=== PATIENT | male | born 1945 | race Caucasian/White ===

== ENCOUNTER 2024-01-07 12:04 | Inpatient (IN) | payer MEDICARE, OTHER, SELFPAY ==
[2024-01-05 15:17] VITALS: BP 115/80
--- NOTE | 2024-01-05 15:33 | ED.CVA ---
History of Present Illness
<Robert Natarajan PA-C - Last Filed: 01/08/24 13:08>
General
Chief Complaint: CVA/TIA Symptoms
Time Seen by Provider: 01/05/24 15:21
Onset of Stroke Symptoms
Onset of symptoms known: Yes
Date of onset of symptoms: 01/05/24
Travel History
Have you had any contact with someone who has COVID-19?: No
Do you have any symptoms of coronavirus? Fever > 100 degrees, chills, cough, shortness of breath, sore throat, loss of taste or smell, muscle aches, or headache?: No
History of Present Illness
History of Present Illness:
78-year-old male with history of hypertension presents to the emergency department for relation of transient episode of left eye vision loss. He states he abruptly noticed as though a 'curtain came down' over the left eye, states that he did still
have light perception and blurry vision, resolved after approximately 2 minutes. Had a similar episode 2 weeks ago as well as a very similar episode 5 years ago. 5 years ago was admitted to the hospital for presumed TIA, at that time underwent CT
of the head as well as brain MRI and MRA of the head and neck with no appreciable abnormalities identified. Since that time he has been maintained on baby aspirin as well as low-dose statin and blood pressure medications. Denies any associated
headache, neck pain, extremity paresthesias, extremity weakness, or chest pain associated with this event. Currently asymptomatic
Past History
<Robert Natarajan PA-C - Last Filed: 01/08/24 13:08>
Past History
ED Past Medical History: Cancer (basal cell carcinoma removed 10/2018), Other (pancreatitis of unclear etiology 08/2018), Other (nephrolithiasis) and Other (torn R rotator cuff)
ED Past Surgical History: Other (kidney stones removal)
Social History
Tobacco: Non-smoker
Alcohol: Occasional
Personal:
Living: with family
Employment: Retired
Family History
Family History: Other (M with carotid stenosis)
Review of Systems
<Robert Natarajan PA-C - Last Filed: 01/08/24 13:08>
Review of Systems
Allergies reviewed?: Yes
All Other Systems: ROS reviewed and negative except as documented in HPI and ROS
Phy Exam
<Robert Natarajan PA-C - Last Filed: 01/08/24 13:08>
Physical Exam
Physical Exam:
GEN: Well appearing, NAD, WDWN
HEENT: Oral mucosa moist, no scleral icterus, no nasal congestion, PERRLA
Cardiac: Regular rate
Lung: No respiratory distress, no tachypnea
MSK: No gross deformity or injuries
Skin: Good color, no pallor or jaundice, no rashes
Neuro: AO x3; CN II-XII grossly intact. BUE strength 5/5 in all angeles, sensation intact and symmetric. BLE strength 5/5 in all angeles, sensation intact and symmetric
Psych: Calm, cooperative
Course
<Robert Natarajan PA-C - Last Filed: 01/08/24 13:08>
Orders/Labs/Results
Orders:
Orders
01/05/24 Breakfast
Cholesterol Lowering
At Your Request: Full Participation
Does patient need a safe tray?: No
Cholesterol Lowering: Sodium, 2 Gram
01/05/24 15:33
Electrocardiogram (*1) Urgent
Reason for Study: TIA/Stroke
CT Head W/o Iv Contrast Urgent
Comment:
Reason For Exam: TIA
EKG- Treatment ONCE
01/05/24 16:01
Complete Blood Count/With Diff Urgent
Comprehensive Metabolic Panel Urgent
Erythrocyte Sed Rate Urgent
Comment: ADD ON
Troponin I Urgent
01/05/24 17:29
Add On- LAB Urgent
Tests Added?: ESR, CRP
01/05/24 17:32
Neck Angio w/wo Contrast CT [CT Neck Angio W/wo Iv Contrast] Urgent
Comment:
Reason For Exam: TIA/eval carotids
01/05/24 17:41
C-Reactive Protein Urgent
Comment: ADD ON
01/05/24 20:04
Aspirin 325 mg PO NOW STA
Clopidogrel Bisulfate [Plavix] 300 mg PO NOW STA
01/05/24 20:07
Consult Neurology [NEUROLOGY CONSULT] Urgent
Consulting Provider: Sushant Garrido
Was physician already notified: Yes
01/05/24 20:27
Admit/Transfer Patient As Directed
Co-Sign Provider:
Level of Care: Observation services
Assign to:: Telemetry
Physician / Group: artur solo
Diagnosis: carotid stenosis
Reason for Telemetry: Other
Other Reason for Telemetry: carotid stenosis
Date to Stop Telemetry: 01/07/24
Time to Stop Telemetry: 11:00
01/05/24 20:28
Code Status As Directed
Resuscitation Status: Full Code
01/05/24 22:16
Acetaminophen [Tylenol] 650 mg PO Q4HPRN PRN
Lisinopril [Zestril] 10 mg PO HS
Tetrahydrozoline 0.05% [Visine Eye Drops] See Dose Instructions LEFT EYE HSPRN PRN
01/05/24 22:16
Vascular Surgery Consult Routine
Consulting Provider: Will Saenz
Was physician already notified: Yes
Activity As Directed
Activity Level: As Tolerated
Pneumatic Compression Sleeves As Directed
Type: Knee high
Vital Signs As Directed
Frequency: Per unit guidelines
DX Deep Vein Thrombosis Video Routine
01/05/24 22:51
Atorvastatin [Lipitor] 20 mg PO NOW STA
01/06/24 06:00
Physical Therapy Consult [Pt Eval And Treat] IN AM
Activity Level: As Tolerated
01/06/24 07:19
MA [place] [facility] Routine
Comment:
Reason For Exam: intracranial stenosis
Recent pill cam endoscopy?: No
MR Brain Without Contrast Routine
Comment:
Reason For Exam: Leye amaurosis, eval any left MCA or GLYNN infarct
Recent pill cam endoscopy?: No
01/06/24 07:20
NIH Stroke Scale As Directed
Neurological Checks As Directed
Frequency: Per unit guidelines
01/06/24 08:00
Aspirin Low Dose EC [Aspir Low (Enteric Coated)] 81 mg PO DAILY
Clopidogrel Bisulfate [Plavix] 75 mg PO DAILY
Pantoprazole [Protonix] 40 mg PO DAILY
01/06/24 10:05
Basic Metabolic Panel IN AM
Complete Blood Count/No Diff IN AM
Hemoglobin A1c [Glycohemoglobin (HgbA1c)] IN AM
Lipid Profile [Cardiovascular Evaluation] IN AM
01/06/24 10:28
Vascular Surgery Consult Routine
Consulting Provider: Will Saenz
Was physician already notified: Yes
Reason for consult: Suspect symptomatic left carotid stenosis, 2 episodes Amaurosis fugax
01/06/24 12:29
CARDIOLOGY CONSULT Routine
Consulting Provider: Saad Sher
Was physician already notified: Yes
Reason for consult: preop eval for CEA
01/06/24 12:34
DX Deep Vein Thrombosis Video Routine
01/06/24 18:00
Enoxaparin Sodium [Lovenox] 40 mg SC QPM
01/06/24 22:00
Atorvastatin [Lipitor] 40 mg PO HS
01/07/24
Telemetry Continue As Directed
Date to Stop Telemetry: 01/08/24
Time to Stop Telemetry: 11:00
01/07/24 11:00
DC Protocol for Telemetry ONCE
01/08/24 Breakfast
NPO
Allow oral meds: Yes
Allow clear liquids: Sips of Clears
Abnormal Lab Results
01/05/24 01/06/24
16:01 10:05
WBC 3.6 L 10^3/uL
(4.8-10.8)
RBC 4.43 L 10^6/uL 4.45 L 10^6/uL
(4.70-6.10) (4.70-6.10)
MCV 96.2 H fL 96.0 H fL
(80.0-94.0) (80.0-94.0)
MCH 32.1 H pg 31.7 H pg
(27.0-31.0) (27.0-31.0)
Lymphocytes % 19.8 L %
(20.5-51.1)
BUN 28 H mg/dl 24 H mg/dl
(9-20) (9-20)
Glucose 100 H mg/dl 124 H mg/dl
(70-99) (70-99)
Hemoglobin A1c 5.7 H %
(4.0-5.6)
01/06/24 10:05
01/06/24 10:05
Vital Signs
Initial and Last Documented VS:
Initial Vital Signs
Temp Pulse Resp BP Pulse Ox
99.3 F 74 18 115/80 97
01/05/24 15:17 01/05/24 15:17 01/05/24 15:17 01/05/24 15:17 01/05/24 15:17
Last Documented Vital Signs
Temp Pulse Resp BP Pulse Ox
97.7 F 71 15 112/61 95
01/08/24 12:45 01/08/24 12:28 01/08/24 12:28 01/08/24 12:28 01/08/24 12:30
<RICK Billy - Last Filed: 01/07/24 04:51>
Orders/Labs/Results
Orders:
Orders
01/05/24 Breakfast
Cholesterol Lowering
At Your Request: Full Participation
Does patient need a safe tray?: No
Cholesterol Lowering: Sodium, 2 Gram
01/05/24 15:33
Electrocardiogram (*1) Urgent
Reason for Study: TIA/Stroke
CT Head W/o Iv Contrast Urgent
Comment:
Reason For Exam: TIA
EKG- Treatment ONCE
01/05/24 16:01
Complete Blood Count/With Diff Urgent
Comprehensive Metabolic Panel Urgent
Erythrocyte Sed Rate Urgent
Comment: ADD ON
Troponin I Urgent
01/05/24 17:29
Add On- LAB Urgent
Tests Added?: ESR, CRP
01/05/24 17:32
Neck Angio w/wo Contrast CT [CT Neck Angio W/wo Iv Contrast] Urgent
Comment:
Reason For Exam: TIA/eval carotids
01/05/24 17:41
C-Reactive Protein Urgent
Comment: ADD ON
01/05/24 20:04
Aspirin 325 mg PO NOW STA
Clopidogrel Bisulfate [Plavix] 300 mg PO NOW STA
01/05/24 20:07
Consult Neurology [NEUROLOGY CONSULT] Urgent
Consulting Provider: Sushant Garrido
Was physician already notified: Yes
01/05/24 20:27
Admit/Transfer Patient As Directed
Co-Sign Provider:
Level of Care: Observation services
Assign to:: Telemetry
Physician / Group: artur solo
Diagnosis: carotid stenosis
Reason for Telemetry: Other
Other Reason for Telemetry: carotid stenosis
Date to Stop Telemetry: 01/07/24
Time to Stop Telemetry: 11:00
01/05/24 20:28
Code Status As Directed
Resuscitation Status: Full Code
01/05/24 22:16
Acetaminophen [Tylenol] 650 mg PO Q4HPRN PRN
Lisinopril [Zestril] 10 mg PO HS
Tetrahydrozoline 0.05% [Visine Eye Drops] See Dose Instructions LEFT EYE HSPRN PRN
01/05/24 22:16
Vascular Surgery Consult Routine
Consulting Provider: Will Saenz
Was physician already notified: Yes
Activity As Directed
Activity Level: As Tolerated
Pneumatic Compression Sleeves As Directed
Type: Knee high
Vital Signs As Directed
Frequency: Per unit guidelines
DX Deep Vein Thrombosis Video Routine
01/05/24 22:51
Atorvastatin [Lipitor] 20 mg PO NOW STA
01/06/24 06:00
Physical Therapy Consult [Pt Eval And Treat] IN AM
Activity Level: As Tolerated
01/06/24 07:19
MA [place] [facility] Routine
Comment:
Reason For Exam: intracranial stenosis
Recent pill cam endoscopy?: No
MR Brain Without Contrast Routine
Comment:
Reason For Exam: Leye amaurosis, eval any left MCA or GLYNN infarct
Recent pill cam endoscopy?: No
01/06/24 07:20
NIH Stroke Scale As Directed
Neurological Checks As Directed
Frequency: Per unit guidelines
01/06/24 08:00
Aspirin Low Dose EC [Aspir Low (Enteric Coated)] 81 mg PO DAILY
Clopidogrel Bisulfate [Plavix] 75 mg PO DAILY
Pantoprazole [Protonix] 40 mg PO DAILY
01/06/24 10:05
Basic Metabolic Panel IN AM
Complete Blood Count/No Diff IN AM
Hemoglobin A1c [Glycohemoglobin (HgbA1c)] IN AM
Lipid Profile [Cardiovascular Evaluation] IN AM
01/06/24 10:28
Vascular Surgery Consult Routine
Consulting Provider: Will Saenz
Was physician already notified: Yes
Reason for consult: Suspect symptomatic left carotid stenosis, 2 episodes Amaurosis fugax
01/06/24 12:29
CARDIOLOGY CONSULT Routine
Consulting Provider: Saad Sher
Was physician already notified: Yes
Reason for consult: preop eval for CEA
01/06/24 12:34
DX Deep Vein Thrombosis Video Routine
01/06/24 18:00
Enoxaparin Sodium [Lovenox] 40 mg SC QPM
01/06/24 22:00
Atorvastatin [Lipitor] 40 mg PO HS
01/07/24
Telemetry Continue As Directed
Date to Stop Telemetry: 01/08/24
Time to Stop Telemetry: 11:00
01/07/24 11:00
DC Protocol for Telemetry ONCE
01/08/24 Breakfast
NPO
Allow oral meds: Yes
Allow clear liquids: Sips of Clears
Abnormal Lab Results
01/05/24 01/06/24
16:01 10:05
WBC 3.6 L 10^3/uL
(4.8-10.8)
RBC 4.43 L 10^6/uL 4.45 L 10^6/uL
(4.70-6.10) (4.70-6.10)
MCV 96.2 H fL 96.0 H fL
(80.0-94.0) (80.0-94.0)
MCH 32.1 H pg 31.7 H pg
(27.0-31.0) (27.0-31.0)
Lymphocytes % 19.8 L %
(20.5-51.1)
BUN 28 H mg/dl 24 H mg/dl
(9-20) (9-20)
Glucose 100 H mg/dl 124 H mg/dl
(70-99) (70-99)
Hemoglobin A1c 5.7 H %
(4.0-5.6)
01/06/24 10:05
01/06/24 10:05
Vital Signs
Initial and Last Documented VS:
Initial Vital Signs
Temp Pulse Resp BP Pulse Ox
99.3 F 74 18 115/80 97
01/05/24 15:17 01/05/24 15:17 01/05/24 15:17 01/05/24 15:17 01/05/24 15:17
Last Documented Vital Signs
Temp Pulse Resp BP Pulse Ox
97.7 F 71 15 112/61 95
01/08/24 12:45 01/08/24 12:28 01/08/24 12:28 01/08/24 12:28 01/08/24 12:30
<RICK Billy - Last Filed: 01/07/24 04:51>
*Radiology
Radiology exam reviewed: radiology read reviewed (CT angio neck-bilateral carotid bifurcation atherosclerosis with severe stenosis of the left carotid bulb (greater than 85% stenosis), and mld stenosis of the right carotid bulb (40% stenosis). )
*Critical Care Note
Total Time (30-74mins, 75-104mins- exclusive of procedures): Not Applicable
<Robert Natarajan PA-C - Last Filed: 01/08/24 13:08>
Update Note
Update Note:
Discussed case with neurology after initial workup was unremarkable. Recommend CT angiogram of the neck only to evaluate for carotid stenosis, if less than 50% can be discharged home with no changes to current therapy. Also recommends adding ESR
and CRP although patient has no headaches that would suggest giant cell arteritis. Will sign out to Madelin Jeff NP pending repeat imaging
ED Attending Note
<Robert Natarajan PA-C - Last Filed: 01/08/24 13:08>
-
Portions of this chart may have been created with voice recognition software.� Occasional wrong word or��sound alike� substitutions may have occurred due to the inherent limitations of voice recognition software.
Discharge Plan
Departure
Patient Disposition: Admit
Date of Disposition: 01/05/24
Time of Disposition: 20:09
Admit to: Telemetry
Presentation/result/management discussed w/ accepting MD/DO: Hospitalist
Patient with high blood pressure during this ER visit?: Yes
Condition: Good
Covid-19: Not Applicable
Discharge Problem:
Amaurosis fugax of left eye
Interventions
Interventions:
*Risk Screen - Suicide Last Done: 01/05/24 20:50
*General Assessment Last Done: 01/05/24 19:58
*Neglect/Abuse Screening Last Done: 01/05/24 15:33
ED- Fall Risk Assessment Last Done: 01/05/24 16:06
*ED COVID-19 Vaccine History Last Done: 01/05/24 19:58
*Nursing Disposition Last Done: 01/05/24 22:05
ED- Pulmonary Assessment Last Done: 01/05/24 16:06
ED- Neurological Assessment Last Done: 01/05/24 16:06
ED- Cardiac Assessment Last Done: 01/05/24 16:06
ED Swallowing Screen Last Done: 01/05/24 20:05
Discharge Date and Time
Discharge Date/Time: 01/05/24 22:05
[2024-01-05 15:58] VITALS: BP 135/80
[2024-01-05 16:11] LABS: % Basophils 0.8 % (0-2); % Eosinophils 4.1 % (0-6); % Immature Granulocytes 0.3 % (0-0.5); % Lymphocytes 19.8 % (20.5-51.1); % Monocytes 7.1 % (1.7-9.3); % Neutrophils 67.9 % (42.2-75.2); Absolute Basophils 0.1 10^3/uL (0-0.2); Absolute Eosinophils 0.3 10^3/uL (0-0.7); Absolute Lymphocytes 1.2 10^3/uL (1.2-3.4); Absolute Monocytes 0.4 10^3/uL (0.1-0.6); Absolute Neutrophils 4.1 10^3/uL (1.4-6.5); Hematocrit 42.6 % (39.0-52.0); Hemoglobin 14.2 g/dL (13.0-18.0); Mean Corp Hgb Conc. 33.3 g/dL (33.0-37.0); Mean Corpuscular Hgb 32.1 pg (27.0-31.0); Mean Corpuscular Volume 96.2 fL (80.0-94.0); Mean Platelet Volume 9.9 fL (7.4-10.4); Nucleated Red Blood Cells % 0 % (-); Platelet Count 167 10^3/uL (130-400); Red Blood Cell Count 4.43 10^6/uL (4.70-6.10); Red Cell Dist. Width 12.6 % (11.5-14.5); White Blood Cell Count 6.1 10^3/uL (4.8-10.8)
[2024-01-05 16:32] LABS: ALT (SGPT) 29 U/L (0-50); AST (SGOT) 25 U/L (17-59); Albumin 4.2 g/dl (3.5-5.0); Alkaline Phosphatase 89 U/L (38-126); Blood Urea Nitrogen 28 mg/dl (9-20); Calcium 9.4 mg/dl (8.4-10.2); Carbon Dioxide 25 mmol/L (22-30); Chloride 106 mmol/L (98-107); Glucose 100 mg/dl (70-99); Potassium 4.1 mmol/L (3.5-5.1); Sodium 140 mmol/L (135-145); Total Bilirubin 0.4 mg/dl (0.2-1.3); Total Protein 6.6 g/dl (6.3-8.2); eGFR > 60.00
[2024-01-05 16:34] LABS: Troponin I < 0.012 ng/ml
[2024-01-05 17:54] LABS: Erythrocyte Sed Rate 2 mm/hour (0-20)
[2024-01-05 18:18] LABS: C-Reactive Protein < 5.00 mg/L (0.0-10.00)
[2024-01-05] MEDS: PLAVIX 300 MG PO (20:09)
[2024-01-05] MEDS: ASPIRIN 325 MG PO (20:09)
--- NOTE | 2024-01-05 20:09 | HPS.HSE ---
Addendum entered and electronically signed by Darinel Woo MD 01/05/24 20:39:
I saw and examined the patient.
The CAR REPAIRER or PA's note was reviewed and I agree with the note.
Comment: see update note
Original Note:
Family Physician
-
Family Physician: Liban Padilla
Chief Complaint
-
left vision loss
History of Present Illness
78-year-old male with history of hypertension, kidney stones presents to us with transient episode of left eye vision loss. lasted only for two minutes. He states he abruptly noticed as though a black curtain came down' over the left eye, states
that he did still have light perception and blurry vision. Had a blurry vision two weeks ago which lasted only for few seconds. similar episode 5 years ago and was admitted here with presumed TIA. Since that time he has been maintained on baby
aspirin as well as low-dose statin and blood pressure medications. Denies any associated headache, neck pain, extremity paresthesias, extremity weakness, or chest pain. denied sob. denied abdominal pain, n,v,d. denied dysuria or hematuria.
head ct with Bilateral carotid bifurcation atherosclerosis with severe stenosis of the left carotid bulb (greater than 85% stenosis), and mild stenosis of the right carotid bulb (40% stenosis). received asa and Plavix in Er. admitting for further
management.
Medical History
Past Medical History
Past Medical History: Reports Other
Additional Past Medical History:
Basal cell carcinoma
Pancreatitis
Nephrolithiasis
Past Surgical History: Reports Other
Additional Past Surgical History:
Basal cell carcinoma removed
Rotator cuff repair
Kidney stones removal
Social History
Tobacco: Former Smoker
Alcohol: Occasional
Drug: None
Personal:
Living: With Family
Family History
Family History: Not pertinent
Allergies / Home Medications
Allergies reflects when Allergies were last updated in [facility].
Home Medications with original date entered in [facility]
Allergy/Medication List:
Allergies
Allergy/AdvReac Type Severity Reaction Status Date / Time
hayfever Allergy nasal Uncoded 11/16/18 17:48
symptoms
Home Medications
aspirin 81 mg tablet,delayed release 81 mg PO DAILY 01/05/24
atorvastatin 20 mg tablet 20 mg PO HS 01/05/24
lisinopril 10 mg tablet 10 mg PO HS 01/05/24
pantoprazole 40 mg tablet,delayed release 40 mg PO DAILY 01/05/24
tetrahydrozoline 0.05 % eye drops (Visine) 1 drp LEFT EYE HSPRN PRN dry eyes 01/05/24
Review of Systems
-
Constitutional: Reports No Symptoms
EENT: Reports Other (Vision loss)
Respiratory: Reports No Symptoms
Cardiac: Reports No Symptoms
Abdomen/GI: Reports No Symptoms
: Reports No Symptoms
Musculoskeletal: Reports No Symptoms
Skin: Reports No Symptoms
Neurological: Reports No Symptoms
Endocrine: Reports No Symptoms
Hematologic/Lymphatic: Reports No Symptoms
Psych: Reports No Symptoms
Physical Exam
Vital Signs
Vital Signs
Temp Pulse Resp BP Pulse Ox
99.3 F 75 16 135/80 97
01/05/24 15:17 01/05/24 16:09 01/05/24 16:09 01/05/24 15:58 01/05/24 16:45
Physical Exam
General: Well Developed, Well Nourished and No Apparent Distress
HEENT: NormoCephalic, Moist mucous membranes and Atraumatic
Respiratory: Clear
Cardiac: S1/S2 and Regular Rhythm; No Murmur or Rub
GI: Soft, Non Tender, Non Distended and Normal Bowel Sounds; No Organomegaly
Rectal: Deferred by Provider
Musculoskeletal: No Clubbing, No Cyanosis and No Edema
Skin: No Rash
Neuro: AO x 3 and Nonfocal/grossly intact
Psych: Calm
Laboratory Results
-
01/05/24 16:01
01/05/24 16:
Laboratory Results
Total Bilirubin 0.4 mg/dl (0.2-1.3) 01/05/24 16:01
AST 25 U/L (17-59) 01/05/24 16:01
ALT 29 U/L (0-50) 01/05/24 16:01
Alkaline Phosphatase 89 U/L (38-126) 01/05/24 16:01
Troponin I < 0.012 ng/ml 01/05/24 16:01
Data Reviewed
-
Diagnostic Radiology: Report Reviewed by me
CT Scan: Report Reviewed by me
Lab Data: Labs Reviewed by me
Impression/Plan
-
# Left eye vision loss likely from severe stenosis of left carotid bulb
-CT angio with Bilateral carotid bifurcation atherosclerosis with severe stenosis of the left carotid bulb (greater than 85% stenosis), and mild stenosis of the right carotid bulb (40% stenosis).
-Head CT normal
-MRI of the brain
-Aspirin and Plavix continued
-statin continued
-obtain a1c,lipid profile
-PT consulted
-Neurology consulted
-Vascular consulted
# History of idiopathic pancreatitis
# Renal calculi history with a history of lithotripsy.
# Deep venous thrombosis prophylaxis. Pneumatic compression
devices.
# CODE STATUS
-Full code
[2024-01-05 20:10] VITALS: BP 142/75
--- NOTE | 2024-01-05 20:35 | W.PN.UPDATE ---
Update Note
Progress Note Update
This note serves as an addendum to the H&P by SUMA/ cigar bander hand Vicky Nur on 01/05/24
HPI
78M Non smoker, Rt hand dominant, HX TIA on ASA, HLD on Statin, HTN on ACEI pw transient episode of left eye vision loss. Described as abruptly noticed as though a 'curtain came down' over the left eye. Assciated blurry vision, resolved after
approximately 2 minutes. Currently asymptomatic
Similar episode 2 weeks ago and in 2019 Dxed TIA, at that time underwent CT of the head as well as brain MRI and MRA of the head and neck with no appreciable abnormalities identified. Since that time he has been maintained on baby aspirin a
ROS
No headache
No neck pain,
No extremity paresthesias
No extremity weakness, or chest pain associated with this event.
PMHX
basal cell carcinoma removed 10/2018
pancreatitis of unclear etiology 08/2018
nephrolithiasis
torn R rotator cuff
PSHX
kidney stones removal
Reviewed VS: 99.3 HR 75 BP 135/80
PE
Gen: NAD, Not toxic
HEENT: symmetric face, nl speech, DONI
Neck: supple , no carotid bruit
Lungs: CTA
Cor: RRR S1 S2 . No murmur
Abdomen: Soft NT NG
RESIDENTIAL CARPET INSTALLER: AAO3, NFND
MS: no edema
Psych: appropriate, calm
Data
nl CBC
nl CMP
NEG TPNI
NEG CRP
NEG HCT
CTA NECK with and without IV contrast
Bilateral carotid bifurcation atherosclerosis
Severe stenosis of the left carotid bulb (greater than 85% stenosis)
Mild stenosis of the right carotid bulb (40% stenosis)
EKG report
SINUS RHYTHM WITH MARKED SINUS ARRHYTHMIA
OTHERWISE NORMAL ECG
WHEN COMPARED WITH ECG OF 16-NOV-2018 16:27,
PREMATURE ATRIAL COMPLEXES ARE NO LONGER PRESENT
Last hospitalist admission: 11/16/18 - 11/17/18
DC DX: TIA episodes of blurry vision in the left eye in the upper half of his visual field.
ASSESSMENT & PLAN
Acute Lt Eye vision loss for 2 Mins and similar episodes 2 weeks ago - likely TIA
POS CTA Severe stenosis of the left carotid bulb (greater than 85% stenosis)
- agree with ASA load plus Plavix
- Brain MRI
- Neuro consulted
- Vascular consult
Primary HTN
- cont. CATTLE DRIVER Lisinopril
- Goal normotensive
HLD
- cont. CATTLE DRIVER Atorvastatin - escalade to 40mg HS
DVT Px: SCD
Code: Full
Obs TLM
[2024-01-05 21:00] VITALS: BP 133/70
[2024-01-05 22:00] VITALS: BP 129/65
[2024-01-05 22:20] VITALS: BP 149/74
[2024-01-05 22:41] VITALS: BMI 27.1
[2024-01-05] MEDS: LIPITOR 20 MG PO (23:19)
[2024-01-05] MEDS: ZESTRIL 10 MG PO (23:19)
[2024-01-06] VITALS (7 sets, daily range): BP systolic 108–139; BP diastolic 64–80; PULSE 65; O2SAT 98
--- NOTE | 2024-01-06 00:22 | PTCARENOTE ---
Pt arrived to unit around 1999. Pt ambulated from the stretcher to the bed. Pt reports no pain, and VSS. Pt oriented to the room and call [place] within reach.
--- NOTE | 2024-01-06 07:20 | CON.NEURO4 ---
Consultation - Neurology 4
-
CONSULTING PHYSICIAN: Archie Garrido
REFERRING PHYSICIAN: ER
DICTATED BY: Archie Garrido
DATE/TIME OF REQUEST: 01/06/24
DATE/TIME OF CONSULTATION: 01/06/24
Reason for Consultation: Left eye vision loss, concern for amaurosis and left carotid stenosis
History of Present Illness:
Patient is a right-handed 78-year-old male with a past no history of previous TIA/amaurosis fugax, hypertension, hyperlipidemia presented to hospital because of episode of painless left eye vision loss happening yesterday.
Patient reports that he had a similar episode around 2 to 3 weeks ago that was somewhat less severe. It lasted just around 1 to 2 minutes and was described as a shade coming down on the left eye only it was painless and did not have any headache
before during or after this event. Yesterday patient is a similar event that seemed a little bit more severe with complete loss of vision in her left eye again seeming like a shade and lasting around 1 to 2 minutes spontaneously resolving. No
symptoms of speech difficulty right hand or arm weakness or right leg weakness or dysarthria.
Patient occasionally has his left arm fall asleep when sleeping in bed.
Patient had a similar episode of left eye painless vision loss in November 2018 he had MRI of the brain and MRA of the head and and neck with no finding of acute or chronic stroke and no significant stenosis in the intracranial or carotid
circulations he was started on aspirin which he has been compliant with.
No symptoms of unusual headaches or any head or neck trauma recently.
Past Medical History: TIA, hyperlipidemia, hypertension, pancreatitis, nephrolithiasis
Surgical History: Basal cell carcinoma removal 2019, kidney stone removal
Family History: Non-contributory
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
Review of Symptoms:
Patient denies any fever, headache, chest pain, shortness of breath, GI or symptoms.
Physical Exam:
Well-appearing middle elderly age man appears well-groomed well-dressed appears his stated age, no signs of head or neck trauma no ptosis eyes are clear, oropharynx is clear neck supple with no masses full range of motion heart rate regular
breathing unlabored abdomen soft nontender no lower extremity edema or joint deformity seen
Neurologic Examination:
The patient is awake, alert and oriented x 3. He is able to follow commands and answer questions appropriately. There is no aphasia or dysarthria. On cranial nerve assessment, pupils are 3 mm bilateral, round and reactive to light and
accommodation. Visual chen are full. Extraocular movements are intact. Facial sensations are intact and bilaterally symmetrical, there is no facial asymmetry. Hearing is intact bilaterally to normal conversation volume. Tongue palate and uvula
are midline. Sternocleidomastoid strengths are full bilaterally. Motor strengths are 5/5 bilateral upper and lower extremities on medical research [place] scale. There is no drift or involuntary movement noted. Deep tendon reflexes are 2+ bilateral
upper and lower extremities and Babinski is absent bilaterally. Sensations of pain, touch, temperature and vibration are intact and bilaterally symmetrical. There was no extinction noted on double simultaneous stimulation. Coordination is intact by
finger to nose bilaterally.
Neuro Imaging: CTA neck with bilateral carotid stenosis, severe on the left, portion of left ICA shows is > 70% stenosis with soft plaque, minimal calcification, no dissection seen
MRI of the brain shows no acute or chronic infarct.
No significant intracranial stenosis or occlusion or vascular malformation or aneurysm seen on the MRA of the head
Impressions
1. 2 episodes of left eye painless vision loss representing amaurosis fugax/TIA, high degree of suspicion this is symptomatic left carotid stenosis. No clinical history suggestive of giant cell arteritis and ESR CRP are reassuringly normal. No
history of migraines that would produce visual aura.
2. Hypertension
3. Hyperlipidemia
Patient has the following risk factors for their symptoms: Smoking, hypertension and hyperlipidemia
Recommendations:
1. Continue DAPT therapy aspirin and clopidogrel tentatively for 21 days total then return to aspirin monotherapy
2. Continue 20 mg atorvastatin at his home dose LDL is 36 at goal less than 7
3. Goal normotension
4. Neurologic checks and NIH stroke scale
5. MRI of the brain and MRA of the head reviewed
6. Monitor on cardiac telemetry
7. Transthoracic echocardiogram is felt to be low yield not going to recommend the study unless new indications arise
8. Vascular surgery consultation
9. If revascularization of carotid pursued patient is acceptable for pursuing procedure as early as tomorrow 01/06 given no stroke on MRI, is not felt to be emergent, revascularization generally pursued within 2-14 days of TIA event, will reassess
based on vascular surgery input
Discussed with the patient my high degree of suspicion for left carotid stenosis and medical in addition to strong consideration for surgical treatment.
Will continue to follow
Discussed patient care with: Patient
NIH Stroke Score
Subsequent NIH Scale
Date of Subsequent NIH Scale: 01/06/24
Time of Subsequent NIH Scale: 07:21
NIH Stroke Score
Level of Consciousness: 0 - Alert
LOC Questions: 0-Answers both correctly
LOC Commands: 0-Performs both correctly
Best Horizontal Gaze: 0-Normal
Visual Chen: 0=Normal, no visual loss
Facial Palsy: 0=Normal, symmetrical
Motor - Right Arm: 0=No drift 10 seconds
Motor - Left Arm: 0=No drift 10 seconds
Motor - Right Le-No drift 5 seconds
Motor - Left Le-No drift 5 seconds
Limb Ataxia: 0-Absent
Sensation: 0-Normal
Best Language: 0-No aphasia
Dysarthria: 0-Normal
Extinction and Inattention: 0-No abnormality
Total Score:: 0
Allergies
-
Allergies
Allergy/AdvReac Type Severity Reaction Status Date / Time
hayfever Allergy nasal Uncoded 11/16/18 17:48
symptoms
Home Medications
-
Home Medications
aspirin 81 mg tablet,delayed release 81 mg PO DAILY 01/05/24
atorvastatin 20 mg tablet 20 mg PO HS 01/05/24
lisinopril 10 mg tablet 10 mg PO HS 01/05/24
pantoprazole 40 mg tablet,delayed release 40 mg PO DAILY 01/05/24
tetrahydrozoline 0.05 % eye drops (Visine) 1 drp LEFT EYE HSPRN PRN dry eyes 01/05/24
Vital Signs / Labs
-
Vital Signs and Labs:
Temp Pulse Resp BP Pulse Ox
97.6 F 68 16 116/69 97
01/06/24 03:00 01/06/24 03:00 01/06/24 03:00 01/06/24 03:00 01/06/24 03:00
01/05/24
16:01
RBC 4.43 L
MCV 96.2 H
MCH 32.1 H
Lymphocytes % 19.8 L
BUN 28 H
Glucose 100 H
[2024-01-06] MEDS: PLAVIX 75 MG PO (08:10)
[2024-01-06] MEDS: PROTONIX 40 MG PO (08:10)
[2024-01-06] MEDS: ASPIR LOW (ENTERIC COATED) 81 MG PO (08:10)
--- NOTE | 2024-01-06 09:24 | W.PN.VS ---
Today's Communication / Plan
-
cards consult
Assessment/Plan
-
attempted to see patient this am - not in room and off floor
scans and notes reviewed
will likely need CEA
please consult cards for preop eval
Subjective Data
-
Date of Service: January 06, 2024
Objective Data
-
Vital Signs
Temp Pulse Resp BP Pulse Ox
97.8 F 68 18 137/80 96
01/06/24 07:56 01/06/24 07:56 01/06/24 07:56 01/06/24 07:56 01/06/24 07:56
Intake and Output
01/05/24 01/06/24 01/07/24
06:59 06:59 06:59
Intake Total 240 / 240
Balance 240 / 240
Intake:
Oral fluids 240 / 240
Other:
Number of approximated MODERATE 1
amounts of urine
Calcium 9.4 mg/dl (8.4-10.2) 01/05/24 16:01
Total Bilirubin 0.4 mg/dl (0.2-1.3) 01/05/24 16:01
AST 25 U/L (17-59) 01/05/24 16:01
ALT 29 U/L (0-50) 01/05/24 16:01
Alkaline Phosphatase 89 U/L (38-126) 01/05/24 16:01
Total Protein 6.6 g/dl (6.3-8.2) 01/05/24 16:01
Albumin 4.2 g/dl (3.5-5.0) 01/05/24 16:01
[2024-01-06 10:25] LABS: Hematocrit 42.7 % (39.0-52.0); Hemoglobin 14.1 g/dL (13.0-18.0); Mean Corpuscular Hgb 31.7 pg (27.0-31.0); Platelet Count 156 10^3/uL (130-400); Red Blood Cell Count 4.45 10^6/uL (4.70-6.10); Red Cell Dist. Width 12.5 % (11.5-14.5); White Blood Cell Count 3.6 10^3/uL (4.8-10.8)
[2024-01-06 10:47] LABS: Blood Urea Nitrogen 24 mg/dl (9-20); Calcium 9.4 mg/dl (8.4-10.2); Carbon Dioxide 29 mmol/L (22-30); Chloride 106 mmol/L (98-107); Estimated Creatinine Clearance 74 ml/min; Glucose 124 mg/dl (70-99); HDL Cholesterol 58 mg/dl; LDL Cholesterol, Calculated 36 mg/dl; Potassium 3.9 mmol/L (3.5-5.1); Sodium 139 mmol/L (135-145); Total Cholesterol 103 mg/dl (50-199); Triglyceride 47 mg/dl (10-149); Very Low Density Lipoprotein 9 mg/dl (0-30); eGFR > 60.00
--- NOTE | 2024-01-06 12:27 | W.PN.HOSP.TC ---
Today's Communication/Plan
-
cards for pre-op
cont DAPT
Cont statin
Assessment / Plan
Assessment / Plan
# amaurosis fugax of left eye likely 2/2 severe left carotid artery stenosis
-CT angio with Bilateral carotid bifurcation atherosclerosis with severe stenosis of the left carotid bulb (greater than 85% stenosis), and mild stenosis of the right carotid bulb (40% stenosis).
-Head CT normal
-MRI of the brain No acute intracranial abnormality noted.
-Aspirin and Plavix continued for 21 day then aspirin alone
-statin continued
-obtain a1c,lipid profile
-PT consulted
-Neurology consulted
-Vascular consulted-requested Cards for preop risk stratification for CEA.
# History of idiopathic pancreatitis
# Renal calculi history with a history of lithotripsy.
# Deep venous thrombosis prophylaxis-start lovenox
# CODE STATUS
-Full code
Anticipated Discharge: > 48 hours
Subjective/Interval History
-
Date of Service: January 06, 2024
Denies any further vision problems
States patient is back to baseline
Denies any focal weakness
Objective Data
-
Labs:
Laboratory Results
01/06/24
10:05
WBC 3.6 L
Hgb 14.1
Hct 42.7
Plt Count 156
Sodium 139
Potassium 3.9
Chloride 106
Carbon Dioxide 29
BUN 24 H
Creatinine 0.9
Glucose 124 H
Calcium 9.4
Vital Signs:
Vital Signs
Temp Pulse Resp BP Pulse Ox
97.8 F 68 18 137/80 96
01/06/24 07:56 01/06/24 07:56 01/06/24 07:56 01/06/24 07:56 01/06/24 07:56
I&O
01/05/24 01/06/24 01/07/24
06:59 06:59 06:59
Intake Total 240 / 240
Balance 240 / 240
Physical Exam
-
General: Well Developed and No Apparent Distress
HEENT: Normocephalic, Atraumatic and Moist Mucous Membranes
Respiratory: Clear to Auscultation
Cardiac: Regular Rhythm and S1/S2; Negative Murmur, Rub or Gallop
GI: Soft, Nontender, Nondistended and Normal Bowel Sounds; Negative Organomegaly
Rectal: Deferred by Provider
Musculoskeletal: No Clubbing, No Cyanosis and No Edema
Skin: Negative Rash
Neuro: Awake, Alert, Oriented, AO x 3, No Motor Deficits and Nonfocal/Grossly Intact
Psych: Calm
[2024-01-06 12:49] LABS: Glycohemoglobin (HgbA1c) 5.7 % (4.0-5.6)
--- NOTE | 2024-01-06 14:27 | CON.CAR ---
Consultation
Consultation Request
Date/Time Consultation Requested: 01/06/2024 at 1229 hrs.
Date/Time Consultation Performed: 01/06/2024 at approximately 1330 hrs.
Requesting Provider: Mike Godoy MD
Performing Provider: Saad Sher MD
Reason for Consultation: Preoperative cardiovascular risk assessment prior to carotid endarterectomy
Medical History
-
Chief Complaint: Patient presented with painless unilateral vision loss.
History of Present Illness:
Thank you for requesting cardiovascular consultation. Mr. Arvind Calvin is a pleasant 78-year-old gentleman with systemic hypertension and mixed hyperlipidemia who was admitted for painless brief unilateral vision loss. Carotid studies revealed
significant stenosis. Vascular surgery suspects he will benefit from carotid endarterectomy and cardiac consultation was requested.
The patient does have stable dyspnea on exertion and about 14 months ago he underwent an echocardiographic study for evaluation of those symptoms. That was performed at an outside institution. The patient reports that the results were reassuring
but he does not know the exact results.
Past Medical History
Past Medical History: HTN and Hypercholesterolemia
Past Surgical History: None
Social History
Tobacco: Former Smoker
Alcohol: Occasional
Drug: None
Personal:
Living: With Family
Employment: Retired
Family History
Family History: Other (Negative for relatives with premature vascular disease. His mother did have carotid vascular disease)
Allergies / Home Medications
Allergy/AdvReac Type Severity Reaction Status Date / Time
hayfever Allergy nasal Uncoded 11/16/18 17:48
symptoms
�Medication �Instructions �Recorded �Confirmed �Type
aspirin 81 mg tablet,delayed 81 mg PO DAILY 01/05/24 01/05/24 History
release
atorvastatin 20 mg tablet 20 mg PO HS 01/05/24 01/05/24 History
lisinopril 10 mg tablet 10 mg PO HS 01/05/24 01/05/24 History
pantoprazole 40 mg tablet,delayed 40 mg PO DAILY 01/05/24 01/05/24 History
release
tetrahydrozoline 0.05 % eye drops 1 drp LEFT EYE HSPRN PRN dry eyes 01/05/24 01/05/24 History
(Visine)
Review of Systems
-
History Source: Patient and Family
Respiratory: Other (Positive for shortness of breath that has been stable.)
Cardiac: No Symptoms (No anginal chest pain. No palpitations. No syncope.)
Abdomen/GI: No Symptoms
Physical Exam
Vital Signs
Temp Pulse Resp BP Pulse Ox
97.4 F 61 16 136/72 98
01/06/24 11:32 01/06/24 11:32 01/06/24 11:32 01/06/24 11:32 01/06/24 11:32
Lab Results
01/06/24 10:05
01/06/24 10:05
Troponin I < 0.012 ng/ml 01/05/24 16:01
Physical Exam
General: Well Developed and Well Nourished
HEENT: Normocephalic and Anicteric
Respiratory: Clear
Cardiac: S1/S2, Regular Rhythm and Other (No murmur)
GI: Soft and Non Tender
Musculoskeletal: No Cyanosis
Skin: Warm and Dry
Neuro: AO x 3 and No Motor Deficits
Psych: Calm
Impression / Plan
-
Preoperative cardiovascular risk assessment: Low risk for cardiac complications related to planned left carotid endarterectomy. Exercise capacity exceeds 4 METS. Clinically no concerns for unstable coronary syndromes, heart failure, or arrhythmia.
Hypertension: Continue current medical regimen. The patient should monitor his blood pressure at home and aim for an average blood pressure of less than 130/80.
Mixed hyperlipidemia: Well-controlled on current statin therapy. Goal LDL cholesterol less than 55 for this high risk patient.
Sedentary lifestyle: Once he recovers I told him that he should begin to exercise on a regular basis. 150 minutes/week of moderate or higher intensity exercise including both resistance and aerobic training.
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 I asked the patient to see his film library clerk for follow-up after he recovers from his carotid intervention.
We will see the patient again during this hospitalization if requested. Thank you for having us see this patient in consultation.
Data Reviewed
-
EKG: Tracing Personally Visualized and interpreted (EKG 12/28/2023 NSR with sinus arrhythmia 64 bpm. Normal.)
Radiology: Report Reviewed by me (1. Head MRA negative for intracranial vascular abnormality. 2. Brain MRI negative for stroke. Atrophy noted. 3. Greater than 85% left carotid bulb atherosclerotic disease. 40% on the right.)
Labs: Labs Reviewed by me (Hemoglobin 14.1. Platelet 156. Glucose 124. Hemoglobin A1c 5.7. Creatinine 0.9. LDL 36. HDL 58. Cholesterol 103.)
Total Time Spent with Patient (in minutes): 78 min: chart review, examining patient, interviewing patient, prepare c/s
[2024-01-06] MEDS: LOVENOX 40 MG SC (16:25)
[2024-01-06] MEDS: ZESTRIL 10 MG PO (21:14)
[2024-01-06] MEDS: LIPITOR 40 MG PO (21:19)
[2024-01-07 04:15] VITALS: BP 106/61
[2024-01-07 07:30] VITALS: BP 131/88
--- NOTE | 2024-01-07 07:52 | W.PN.NEURO.1 ---
Today's Communication / Plan
-
-DAPT therapy aspirin/clopidogrel 21 days then aspirin thereafter
-Home dose Atorvastatin 20 mg daily
-Neurologic checks and NIH scales
-Goal normotension
-Acceptable for CEA tomorrow
-Monitoring in ICU afterwards, would keep SBP less than 180 post operatively
Neuro Assessment/Plan
Assessment
1. 2 episodes of left eye painless vision loss representing amaurosis fugax/TIA, this is symptomatic left carotid stenosis. No clinical history suggestive of giant cell arteritis and ESR CRP are reassuringly normal. No history of migraines that
would produce visual aura.
2. Hypertension
3. Hyperlipidemia
MRI brain with no acute infarction
Subjective/Objective
Subjective Data
Date of Service: January 07, 2024
No acute events, discussed evaluation by surgery, reasoning for surgery, stroke prevention
Objective Data
Vital Signs
Temp Pulse Resp BP Pulse Ox
98.1 F 71 18 106/61 94
01/07/24 04:15 01/07/24 04:15 01/07/24 04:15 01/07/24 04:15 01/07/24 04:15
Lab Results
01/06/24 10:05
01/06/24 10:05
Sodium 139 mmol/L (135-145) 01/06/24 10:05
Potassium 3.9 mmol/L (3.5-5.1) 01/06/24 10:05
BUN 24 mg/dl (9-20) H 01/06/24 10:05
Glucose 124 mg/dl (70-99) H 01/06/24 10:05
Calcium 9.4 mg/dl (8.4-10.2) 01/06/24 10:05
LDL Cholesterol, Calc 36 mg/dl 01/06/24 10:05
Patient Allergies
hayfever Allergy (Uncoded 11/16/18 17:48)
nasal symptoms
Review of Systems
-
History Source: Patient
All other systems: Reviewed and negative
Constitutional: No Symptoms
EENT: No Symptoms Reported
Respiratory: No Symptoms
Cardiac: No Symptoms
Abdomen/GI: No Symptoms
Genitourinary: No Symptoms
Musculoskeletal: No Symptoms
Skin: No Symptoms
Neuro: See existing Neuro Note
Endocrine: No Symptoms
Hematologic / Lymphatic: No Symptoms
Physical Exam
-
General: Comfortable
Eyes: No Ptosis
HEENT: Normocephalic
Neck: No Bruits Bilaterally
Respiratory: Clear to Auscultation
Cardiac: Regular Rhythm
GI: Normal Bowel Sounds
Extremities: No Clubbing
Psych: Unremarkable
Extended Neurological Exam
Mood & Affect: Mood Unremarkable and Affect Unremarkable
Attention Span & Concentration: Awake, Alert and Interactive
Memory: Unremarkable
Tremor: Hand Tremor Absent
Involuntary Movement: None
Speech: Quality Unremarkable and Quantity Unremarkable; Negative Expressive Aphasia, Receptive Aphasia or Dysarthric
Cranial Nerve II: Left Eye: Pupillary Reactivity Unremarkable, Pupillary Size Unremarkable and Visual Chen Intact
Cranial Nerve II: Right Eye: Pupillary Reactivity Unremarkable, Pupillary Size Unremarkable and Visual Chen Intact
Cranial Nerves III, IV, : Extraocular Movement: Extraocular Movement Full in all Directions
Cranial Nerve VII: Facial Symmetry: Normal Facial Symmetry
Cranial Nerve VIII: Hearing: Unremarkable Hearing to Normal Conversational Volume
Muscle Strength, Overall: Full Throughout
Pronator Drift: No Drift in Upper Extremities
Vibration Sensation: Unremarkable
Coordination: [id number] Testing Unremarkable
Data Reviewed
-
CT-A: Report Reviewed and Image Reviewed
CT Head: Report Reviewed and Image Reviewed
MRI Head: Report Reviewed and Image Reviewed
Labs: Report Reviewed
[2024-01-07] MEDS: VISINE EYE DROPS 1 DROP LEFT EYE (09:30)
[2024-01-07] MEDS: PLAVIX 75 MG PO (09:31)
[2024-01-07] MEDS: PROTONIX 40 MG PO (09:31)
[2024-01-07] MEDS: ASPIR LOW (ENTERIC COATED) 81 MG PO (09:31)
--- NOTE | 2024-01-07 10:14 | W.PN.VS ---
Today's Communication / Plan
-
CEA redd
Assessment/Plan
-
symptomatic L ICA stenosis
- discussed intervention with patient
- will add on to OR schedule for redd
- need EEG
- NPO post midnight
- seen by cards and neuro
Subjective Data
-
Date of Service: January 07, 2024
78 year old male with Left eye vision loss
previous episode 4 years ago.
no other issues
CTA with 85% L ICA stenosis
Objective Data
-
Vital Signs
Temp Pulse Resp BP Pulse Ox
98.1 F 71 18 106/61 94
01/07/24 04:15 01/07/24 04:15 01/07/24 04:15 01/07/24 04:15 01/07/24 04:15
Intake and Output
01/06/24 01/07/24 01/08/24
06:59 06:59 06:59
Intake Total 240 / 240
Balance 240 / 240
Intake:
Oral fluids 240 / 240
Other:
Number of approximated MODERATE 1 2
amounts of urine
Lab Results
01/06/24 10:05
01/06/24 10:05
Calcium 9.4 mg/dl (8.4-10.2) 01/06/24 10:05
Total Bilirubin 0.4 mg/dl (0.2-1.3) 01/05/24 16:01
AST 25 U/L (17-59) 01/05/24 16:01
ALT 29 U/L (0-50) 01/05/24 16:01
Alkaline Phosphatase 89 U/L (38-126) 01/05/24 16:01
Total Protein 6.6 g/dl (6.3-8.2) 01/05/24 16:01
Albumin 4.2 g/dl (3.5-5.0) 01/05/24 16:01
Physical Exam
-
rrr
ctab
nt,nd,soft
strength equal bilat upper and lower
neuro intact
no visual changes at this time (per patient)
--- NOTE | 2024-01-07 10:29 | CM ---
Chart reviewed and rn case manager hospice met with patient and patient to switch to inpatient, IMM completed and signed at 10am, patient lives with his spouse in a 2 story home, patient is independent with adl's and ambulation, no dme, patient drives, patient
recently retired, home with spouse when stable.
Pharmacy:[facility]
PCP: iLban Padilla.
[2024-01-07 11:02] VITALS: BP 124/66
--- NOTE | 2024-01-07 12:09 | W.PN.HOSP.TC ---
Today's Communication/Plan
-
N.p.o. past midnight for tentative CEA in the morning
Continue with antiplatelet agents
Assessment / Plan
Assessment / Plan
# amaurosis fugax of left eye likely 2/2 severe left carotid artery stenosis
-CT angio with Bilateral carotid bifurcation atherosclerosis with severe stenosis of the left carotid bulb (greater than 85% stenosis), and mild stenosis of the right carotid bulb (40% stenosis).
-Head CT normal
-MRI of the brain No acute intracranial abnormality noted.
-Aspirin and Plavix continued for 21 day then aspirin alone
-statin continued
-PT consulted
-A1C a t 5.7
-Appreciate cardiology evaluation for preop restart
-Plan for CEA per vascular surgery-seems tentative plan for tomorrow
# History of idiopathic pancreatitis
# Renal calculi history with a history of lithotripsy.
# Deep venous thrombosis prophylaxis-start lovenox
# CODE STATUS
-Full code
Anticipated Discharge: > 48 hours
Subjective/Interval History
-
Date of Service: January 07, 2024
Chest pain shortness of breath
States her vision is staying normal
Objective Data
-
Vital Signs:
Vital Signs
Temp Pulse Resp BP Pulse Ox
98.1 F 71 18 106/61 94
01/07/24 04:15 01/07/24 04:15 01/07/24 04:15 01/07/24 04:15 01/07/24 04:15
I&O
01/06/24 01/07/24 01/08/24
06:59 06:59 06:59
Intake Total 240 / 240
Balance 240 / 240
Physical Exam
-
General: Well Developed and No Apparent Distress
HEENT: Normocephalic, Atraumatic and Moist Mucous Membranes
Respiratory: Clear to Auscultation
Cardiac: Regular Rhythm and S1/S2; Negative Murmur, Rub or Gallop
GI: Soft, Nontender, Nondistended and Normal Bowel Sounds; Negative Organomegaly
Rectal: Deferred by Provider
Musculoskeletal: No Clubbing, No Cyanosis and No Edema
Skin: Negative Rash
Neuro: Awake, Alert, Oriented, AO x 3, No Motor Deficits and Nonfocal/Grossly Intact
Psych: Calm
[2024-01-07 15:33] VITALS: BP 120/64
[2024-01-07] MEDS: LOVENOX 40 MG SC (16:51)
[2024-01-07 19:00] VITALS: BP 114/66
[2024-01-07] MEDS: LIPITOR 40 MG PO (20:43)
[2024-01-07] MEDS: ZESTRIL 10 MG PO (20:43)
[2024-01-07 23:00] VITALS: BP 99/52
[2024-01-08] VITALS (24 sets, daily range): BP systolic 62–133; BP diastolic 42–77
--- NOTE | 2024-01-08 07:30 | CON.VAS ---
Consultation
Consultation Request
Date/Time Consultation Performed: 01/08/2024 0730
Requesting Provider: Hospitalist
Performing Provider: KISHA Merida
Reason for Consultation: Left ICA stenosis
Medical History
-
Chief Complaint: Transient vision loss
History of Present Illness:
This is a 78-year-old male who is right-handed with significant past medical history for TIA/amaurosis fugax, hypertension, and hyperlipidemia who presented to [facility] on 01/06/2024 reporting brief left eye vision loss on 01/05/2024.
Patient does endorse experiencing similar episodes on and off over the past 4 years. He denies recurrence since the episode on 01/05/2024. He described vision loss as if a curtain lowered over his left eye. He denies accompanying symptoms of
aphasia, dysarthria, dysphagia, unilateral weakness, and facial droop. CTA of head and neck was obtained which demonstrated, severe stenosis of the left carotid bulb (greater than 85% stenosis, prompting vascular consultation.
Past Medical History
Past Medical History: Other (Basal cell carcinoma, pancreatitis, Nephrolithiasis)
Past Surgical History: Tonsilectomy and Other (Rotator cuff repair, Kidney stones removal)
Social History
Tobacco: Former Smoker
Alcohol: Occasional
Drug: None
Personal:
Living: With Family
Allergies / Home Medications
Allergy/AdvReac Type Severity Reaction Status Date / Time
hayfever Allergy nasal Uncoded 11/16/18 17:48
symptoms
�Medication �Instructions �Recorded �Confirmed �Type
aspirin 81 mg tablet,delayed 81 mg PO DAILY 01/05/24 01/05/24 History
release
atorvastatin 20 mg tablet 20 mg PO HS 01/05/24 01/05/24 History
lisinopril 10 mg tablet 10 mg PO HS 01/05/24 01/05/24 History
pantoprazole 40 mg tablet,delayed 40 mg PO DAILY 01/05/24 01/05/24 History
release
tetrahydrozoline 0.05 % eye drops 1 drp LEFT EYE HSPRN PRN dry eyes 01/05/24 01/05/24 History
(Visine)
Review of Systems
-
History Source: Patient
Constitutional: Reports No Symptoms
EENT: Reports No Symptoms
Respiratory: Reports No Symptoms
Cardiac: Reports No Symptoms
Vascular: Denies Leg Pain / Claudication, Numbness or Tingling
Abdomen/GI: Reports No Symptoms
: Reports No Symptoms
Musculoskeletal: Reports No Symptoms
Skin: Reports No Symptoms
Neurological: Reports Other (Brief episode of left eye vision loss described as a curtain coming down over his eye)
Endocrine: Reports No Symptoms
Physical Exam
Vital Signs
Temp Pulse Resp BP Pulse Ox
97.7 F 71 15 112/61 95
01/08/24 12:45 01/08/24 12:28 01/08/24 12:28 01/08/24 12:28 01/08/24 12:30
Lab Results
01/08/24 11:52
01/08/24 11:52
Troponin I < 0.012 ng/ml 01/05/24 16:01
Physical Exam
General: No Apparent Distress and Comfortable
HEENT: Normocephalic, Anicteric and Atraumatic
Cardiac: Negative JVD
GI: Soft, Non Tender and Non Distended
Musculoskeletal: No Edema
Skin: Warm and Dry
Neuro: AO x 3 and Nonfocal/Grossly Intact
Psych: Calm
Assessment / Plan
-
Assessment: 78-year-old male TIA with left ICA stenosis
Plan:
Left carotid endarterectomy today
EEG scheduled
N.p.o.
DAPT per neurology for treatment of TIA
--- NOTE | 2024-01-08 07:30 | W.PN.UPDATE ---
Update Note
Progress Note Update
Patient seen and evaluated. See full consultation note. Reviewed all pertinent imaging. Discussed with patient extensively plan/recommendations. Symptomatic left carotid artery stenosis with amaurosis. [id number]. No other symptoms.
Recurrent episode, but most recently 3 days ago. Discussed recommendation for revascularization. Discussed modalities. Discussed my recommendation for left CEA. Discussed risks including but not limited to bleeding, infection, cardiac
complications/CO, cranial nerve injury, stroke (in symptomatic setting 2 to 3%). He understands all wishes to proceed with LEFT carotid endarterectomy.
--- NOTE | 2024-01-08 08:14 | W.SUR.PREOP ---
Pre-Operative Surgical Note
-
I have examined this patient prior to the performance of the scheduled procedure.
The patient's condition is unchanged from the time of the current History and
Physical and the patient is able to undergo the scheduled procedure.
[2024-01-08] MEDS: BACTROBAN 2% OINTMENT 1 APPLIC NASAL (08:16)
[2024-01-08] MEDS: PERIDEX 0.12% ORAL RINSE 15 ML PO (08:16)
[2024-01-08 08:18] LABS: % Basophils 0.7 % (0-2); % Eosinophils 4.6 % (0-6); % Immature Granulocytes 0.4 % (0-0.5); % Lymphocytes 20.6 % (20.5-51.1); % Neutrophils 64.7 % (42.2-75.2); Absolute Eosinophils 0.2 10^3/uL (0-0.7); Absolute Lymphocytes 0.9 10^3/uL (1.2-3.4); Absolute Monocytes 0.4 10^3/uL (0.1-0.6); Hematocrit 43.3 % (39.0-52.0); Hemoglobin 14.7 g/dL (13.0-18.0); Mean Corp Hgb Conc. 33.9 g/dL (33.0-37.0); Mean Corpuscular Hgb 31.9 pg (27.0-31.0); Mean Corpuscular Volume 93.9 fL (80.0-94.0); Mean Platelet Volume 9.9 fL (7.4-10.4); Nucleated Red Blood Cells % 0 % (-); Platelet Count 162 10^3/uL (130-400); Red Blood Cell Count 4.61 10^6/uL (4.70-6.10); Red Cell Dist. Width 12.5 % (11.5-14.5); White Blood Cell Count 4.6 10^3/uL (4.8-10.8)
[2024-01-08 08:24] LABS: INR 1.06; PT 13.6 Sec (11.4-14.6)
[2024-01-08 08:41] LABS: Blood Urea Nitrogen 23 mg/dl (9-20); Calcium 9.7 mg/dl (8.4-10.2); Carbon Dioxide 31 mmol/L (22-30); Chloride 102 mmol/L (98-107); Estimated Creatinine Clearance 67 ml/min; Glucose 102 mg/dl (70-99); Potassium 4.2 mmol/L (3.5-5.1); Sodium 141 mmol/L (135-145); eGFR > 60.00
--- NOTE | 2024-01-08 11:25 | W.SUR.POST ---
Surgical Immediate Post Op
Note
Pre Op Diagnosis: Left symptomatic carotid stenosis
Post Op Diagnosis: Same
Procedure Performed: Left carotid endarterectomy with bovine patch pericardium angioplasty, EEG monitoring
Primary Surgeon: Jmi Street MD
Assist: RICK Flood
Anesthesia:GETA
Estimated Blood Loss: 15ml
Fluids:See anesthesia flowsheet
Drains/Shunts: N/A
Specimens/Cultures: Left carotid plaque
Doppler/Duplex/Angio (Y/N): Y
Complications: None
Operative Findings: Successful endarterectomy of left carotid plaque, upon waking patient can move bilateral upper extremities and lower extremities to command and spontaneously
--- NOTE | 2024-01-08 11:58 | OR.RPT ---
Operative Report
Operative Report
PROCEDURE DATE: 01/08/2024
Preoperative diagnosis: Symptomatic critical left carotid artery stenosis.
Postoperative diagnosis: Same
Procedure: Left carotid endarterectomy with bovine pericardial patch angioplasty and intraoperative EEG/SSEP monitoring.
Surgeon: Jad
Certified Hyperbaric Technologist: Kiki Maguire IT PROGRAM ENGAGEMENT DIRECTOR, required for all aspects of procedure including traction/countertraction, following of suture line, assistance with closure.
Complications: None
Anesthesia: General
Indications for procedure:
Episode of amaurosis, felt to be symptomatic related to left carotid stenosis (by neurology group as well as us). CT angiogram demonstrated severe left internal carotid artery proximal stenosis with noncalcified/soft hemorrhagic appearing plaque.
Risk/benefits/alternatives of left carotid endarterectomy all extensively discussed. Patient understood all wish to proceed.
Description of procedure:
Patient was identified brought to the operating room placed on the table in supine position. After the adequate administration of anesthesia and perioperative antibiotics he was prepped and draped in the standard surgical fashion. A standard
preoperative timeout was undertaken and everybody was in agreement the plan. A standard longitudinal incision was made in the left neck that was carried through the skin subcutaneous tissue. Using the electrocautery dissection was carried through
the platysma muscle layer and then alongside the anterior medial border of the sternocleidomastoid muscle. Then using a combination of sharp dissection with the Metzenbaum scissors and electrocautery I dissected along the anterior medial border of
the internal jugular vein. The common facial vein branch was ligated between silk ties and then divided. I then deepened my retraction. The common carotid artery was identified and carefully dissected away from the surrounding structures take
great care to avoid any injury to the structures. A vessel loop was passed around it which was double looped, but not yet tightened. Note the vagus nerve was not directly visualized, and felt to be in its usual location posterior lateral to the
common carotid artery (care was taken to dissect directly on the surface of the artery to avoid any injury). I then continued my dissection up the common carotid artery to the bulb staying only on the anterior surface of the carotid artery. Then I
carried the dissection up to the internal carotid artery and then to the distal internal carotid artery. I identified where it was soft and carefully circumferentially dissected the internal carotid artery with minimal mobilization and passed a
vessel loop around it. Note the hypoglossal nerve was not visualized and felt to be distal to the exposure point. The patient was given an appropriate dose of heparin 8500 units. Next I dissected the anterior surface of the external carotid
artery and superior thyroid branches. I initially only dissected the anterior surface of these arteries to avoid extensive manipulation of the carotid bulb given patient's symptomatic status and soft plaque. After 3 minutes of heparin
circulation time and confirmation of optimization of the blood pressure with my anesthesiology colleagues, I clamped the distal internal carotid artery where it was soft. There was no immediate EEG or SSEP changes. During the 1 minute test clamp.,
I quickly circumferentially dissected the external carotid and superior thyroid branches and passed Vesseloops around these which were double up but not yet tightened. After 1 minute of test clamp time there was no changes noted. Therefore at
this point, the vessel loops on the external carotid artery and superior thyroid branches were tightened and the common carotid artery was clamped where it was soft proximally. An arteriotomy was made on the common carotid artery with an 11 blade
and extended using a Tomas scissor. The arteriotomy was extended onto the mid to distal internal carotid artery. There was severely hemorrhagic friable plaque (hemorrhagic central component resulting in severe stenosis as well). A [place] was then
used to endarterectomized the plaque. An endarterectomy plane was created, and the plaque was then endarterectomized. Distally I feathered the plaque out to a nice clean endpoint in the distal internal carotid artery. Next I endarterectomized the
intima back to normal intima in the common carotid artery, and the intima was cut flush there. I then grasped the plaque and everted plaque out of the origin of the external carotid artery. The plaque was then sent off for specimen. The origin of
the external carotid artery was carefully visualized and any fine debris were removed with fine forceps. Proximal and distal endpoints were then carefully inspected. Any fine debris was removed with fine forceps, and the intima was noted to be
nicely adherent proximally and distally. Next any fine debris were removed throughout the endarterectomy bed with fine forceps. I then flushed heparinized saline. I was very satisfied. Then, I used a bovine pericardial patch to sew a patch
angioplasty with a running 6-0 Prolene suture. Prior to completing and tying down my suture line, I backbled sequentially each branch and reclamped each branch prior to unclamping the next branch. I then irrigated with heparinized saline. Then I
completed and tied down my suture line. We then restored flow in the common carotid and external carotid arteries. Finally, we released flow in the internal carotid artery. There was excellent pulsatile flow in all 3 vessels. There was an
excellent Doppler signal in the internal carotid artery distal to the patch with a good normal low resistance Doppler signal. There was a good Doppler signal in the external carotid artery as well. Two 6-0 Prolene [id number] sutures were
placed along a couple of lightly bleeding points along the suture line. Protamine was given to reverse the heparin. Full hemostasis was completely achieved. We then irrigated and confirmed full hemostasis. I then closed in layers with
interrupted 2-0 Vicryl layer to reapproximate the sternocleidomastoid muscle, followed by 3-0 Vicryl platysma muscle running layer, followed by 4-0 Monocryl subcuticular stitch. Dermabond was applied. The patient tolerated procedure well. He
awoke moving all extremities to command with tongue in the midline.
[2024-01-08] MEDS: NEO-SYNEPHRINE 250 IV (12:00)
[2024-01-08 12:02] LABS: Hematocrit 40.6 % (39.0-52.0); Hemoglobin 13.7 g/dL (13.0-18.0); Mean Corp Hgb Conc. 33.7 g/dL (33.0-37.0); Mean Corpuscular Hgb 32.2 pg (27.0-31.0); Mean Corpuscular Volume 95.5 fL (80.0-94.0); Mean Platelet Volume 9.8 fL (7.4-10.4); Platelet Count 162 10^3/uL (130-400); Red Blood Cell Count 4.25 10^6/uL (4.70-6.10); Red Cell Dist. Width 12.4 % (11.5-14.5); White Blood Cell Count 8.6 10^3/uL (4.8-10.8)
[2024-01-08 12:12] LABS: INR 1.15; PT 14.5 Sec (11.4-14.6)
[2024-01-08 12:13] LABS: APTT 33.6 Sec (23.4-35.0)
[2024-01-08] MEDS: NSS 1000 IV ×2 (12:15→23:58)
[2024-01-08 12:19] LABS: Blood Urea Nitrogen 21 mg/dl (9-20); Calcium 8.3 mg/dl (8.4-10.2); Carbon Dioxide 24 mmol/L (22-30); Chloride 109 mmol/L (98-107); Estimated Creatinine Clearance 74 ml/min; Glucose 117 mg/dl (70-99); Potassium 3.8 mmol/L (3.5-5.1); Sodium 137 mmol/L (135-145); eGFR > 60.00
--- NOTE | 2024-01-08 12:40 | PTCARENOTE ---
1235-Received pt from PACU via bed.Pt is awake,alert.Oriented x 3.Speech is appropriate.No drift/droop.No dysarthria,no visual disturbances noted. c/o slight neck pain with movement.SR noted.Left [place] zeroed.IVF and Phenylephrine gtt
infusing.Lungs CTA.POX 100% on RA.Tolerating ice chips.No BM.No void at this time.Left neck incision slightly ecchymotic,soft,approximated.Plan of care discussed with pt.
[2024-01-08] MEDS: ROXICODONE 5 MG PO (13:13)
[2024-01-08] MEDS: PLAVIX 75 MG PO (13:46)
[2024-01-08] MEDS: PROTONIX 40 MG PO (13:47)
[2024-01-08] MEDS: ASPIR LOW (ENTERIC COATED) 81 MG PO (13:47)
--- NOTE | 2024-01-08 14:18 | CM ---
Patient seen at bedside with and daughter present. Patient lives with in a 2 story home. Patient has no needs previously for DME or VN. Patient PCP Dr. Padilla and he uses the [facility] in [place] on [facility]. Patient was
independent for ADL and IADL's. Patient anticipating discharge tomorrow home with no needs. CM will continue to follow for discharge planning needs.
Plan; home with no needs anticipated.
--- NOTE | 2024-01-08 15:16 | CON.INTV ---
Consultation
Consultation Request
Date/Time Consultation Requested: 01/08/2024
Date/Time Consultation Performed: 01/08/2024
Medical History
-
Chief Complaint: Acute painless vision loss in the left eye
History of Present Illness:
Mr. Arvind Calvin, right-handed 78 yo gentleman, was admitted for painless acute unilateral vision loss in left eye on 01/05/2024. He has a past medical history of hypertension, hyperlipidemia, renal stones and pancreatitis. It started as
sudden loss of vision in the left eye, likely black curtain dropping down when he was bending over, which lasted for 1 and half to 2 minutes and after that his vision was blurry and could only perceive light. No chest pain, shortness of breath,
focal neurological deficits, headaches, nausea, vomiting, numbness, tingling, altered sensation. The patient mentioned that he had similar episodes of transient vision loss 2 weeks ago and once 4 years earlier when he was evaluated for TIA and was
noted to have 40% stenosis of the left carotid artery. In the ER patient received a dose of aspirin, Plavix and as per vascular consult underwent left carotid endarterectomy/angioplasty. The patient was hypotensive in PACU, with blood pressure at
62/42 and he was started on phenylephrine. The patient is transferred to ICU for further management.
Past Medical History
Past Medical History: HTN, Hypercholesterolemia and Other (Pancreatitis, TIA)
Past Surgical History: Urological (Renal stone removal) and Other (Rotator cuff repair, basal cell carcinoma excision)
Social History
Tobacco: Former Smoker (Quit smoking 40 years ago, before that he smoked for 7 to 8 years, 1 pack a day)
Alcohol: Occasional
Drug: None
Personal:
Living: With Family
Allergies / Home Medications
Allergies
Allergy/AdvReac Type Severity Reaction Status Date / Time
hayfever Allergy nasal Uncoded 11/16/18 17:48
symptoms
Home Medications
�Medication �Instructions �Recorded �Confirmed �Last Taken �Type
aspirin 81 mg tablet,delayed 81 mg PO DAILY 01/05/24 01/05/24 01/05/24 History
release
atorvastatin 20 mg tablet 20 mg PO HS 01/05/24 01/05/24 01/04/24 History
lisinopril 10 mg tablet 10 mg PO HS 01/05/24 01/05/24 01/04/24 History
pantoprazole 40 mg tablet,delayed 40 mg PO DAILY 01/05/24 01/05/24 01/05/24 History
release
tetrahydrozoline 0.05 % eye drops 1 drp LEFT EYE HSPRN PRN dry eyes 01/05/24 01/05/24 01/04/24 History
(Visine)
Review of Systems
-
History Source: Patient
All other systems: Negative unless noted
Vitals / Labs / Diagnostic Testing
Vital Signs
Temp Pulse Resp BP Pulse Ox
97.7 F 58 14 116/57 94
01/08/24 12:45 01/08/24 14:45 01/08/24 14:45 01/08/24 14:00 01/08/24 14:45
Lab Data
01/08/24 11:52
01/08/24 11:52
Laboratory Results
01/08/24 01/08/24
08:00 11:52
PT 13.6 14.5
INR 1.06 1.15
APTT 33.6
Diagnostic Testing:
Physical Exam
-
HEENT: Normocephalic and Anicteric
Cardiovascular: S1/S2 and Regular Rhythm
Respiratory: Clear
GI: Soft, Non Distended and Non Tender
Neurology: Awake, Alert, Oriented, AO x 3, No Motor Deficits and Other (Cranial nerves II to XII grossly intact, extraocular movements intact, deep tendon reflexes 2+ throughout, sensations intact throughout, strength 5 / 5 throughout, Babinski
absent bilaterally)
Skin: Warm and Dry
Assessment
-
78-year-old right-handed male who presented with acute painless vision loss in the left eye was diagnosed with left carotid artery stenosis and underwent carotid endarterectomy/angioplasty today. He had an episode of hypotension in the PACU for
which he was started on pressors and transferred to the ICU for further management.
Imaging:
Head CT/brain MRI 01/05/2024: No acute intracranial abnormality.
CT angiogram neck 01/05/2024: Bilateral carotid bifurcation atherosclerosis with severe stenosis of the left carotid bulb (greater than 85% stenosis), and mild stenosis of the right carotid bulb (40% stenosis).
MRA brain/MRA [place] of [place]: No hemodynamically significant stenosis, branch occlusion, or aneurysm.
Impression:
# TIA/amaurosis fugax
# Hypotension/shock secondary to anesthesia postoperatively
# Hypercholesterolemia
Conditions prior to admission:
Hypertension
Hypercholesterolemia
Renal calculi
Pancreatitis
PLAN:
# TIA
Left carotid endarterectomy done today
DAPT with aspirin and Plavix for 21 days, then aspirin 81 mg
Continue statin
Frequent neurochecks and NIH score
# Hypotension/shock secondary to anesthesia postoperatively
Currently on phenylephrine 30 mg
Wean off pressors as tolerated maintaining MAP greater than 65
# Hypercholesterolemia
Continue statins
# Protonix IV
# Diet as tolerated, cholesterol-lowering diet
# DVT prophylaxis
Resume Lovenox as per vascular,
Currently on SCDs
--- NOTE | 2024-01-08 15:36 | W.PN.HOSP.TC ---
Today's Communication/Plan
-
wean off vasopressor
monitor in ICU
likely discharge tomorrow
Assessment / Plan
Assessment / Plan
# Amaurosis fugax of left eye likely 2/2 severe left carotid artery stenosis
-CT angio with Bilateral carotid bifurcation atherosclerosis with severe stenosis of the left carotid bulb (greater than 85% stenosis), and mild stenosis of the right carotid bulb (40% stenosis).
-Head CT normal
-MRI of the brain No acute intracranial abnormality noted.
-Aspirin and Plavix continued for 21 day then aspirin alone
-statin continued
-PT consulted
-A1C a t 5.7
-Appreciate cardiology evaluation for preop restart
-s/p left CEA and postop in ICU. requiring small dose of vasopressors. wean off as possible
# History of idiopathic pancreatitis
# Renal calculi history with a history of lithotripsy.
Deep venous thrombosis prophylaxis-start lovenox
CODE STATUS -Full code
Anticipated Discharge: Within 24 hours
Subjective/Interval History
-
Date of Service: January 08, 2024
seen postoperatively in ICU
denies of having any problems
Objective Data
-
Labs:
Laboratory Results
01/08/24 01/08/24
08:00 11:52
WBC 4.6 L 8.6
Hgb 14.7 13.7
Hct 43.3 40.6
Plt Count 162 162
PT 13.6 14.5
INR 1.06 1.15
APTT 33.6
Sodium 141 137
Potassium 4.2 3.8
Chloride 102 109 H
Carbon Dioxide 31 H 24
BUN 23 H 21 H
Creatinine 1.0 0.9
Glucose 102 H 117 H
Calcium 9.7 8.3 L
Vital Signs:
Vital Signs
Temp Pulse Resp BP Pulse Ox
97.7 F 58 14 116/57 94
01/08/24 12:45 01/08/24 14:45 01/08/24 14:45 01/08/24 14:00 01/08/24 14:45
I&O
01/07/24 01/08/24 01/09/24
06:59 06:59 06:59
Intake Total 600 / 600 414 / 414
Balance 600 / 600 414 / 414
Review of Systems
-
Respiratory: Reports No Symptoms
Cardiac: Reports No Symptoms
Abdomen/GI: Reports No Symptoms
Physical Exam
-
General: Negative Appears in Distress
HEENT: Other (left lateral neck dressing ); Negative Oxygen
GI: Soft, Nontender and Nondistended
Musculoskeletal: No Edema
Neuro: Awake, Alert and Oriented
--- NOTE | 2024-01-08 16:00 | PTCARENOTE ---
Pt assessed.No change in assessment noted.Phenylephrine titrated to maintain BP 100-165.
[2024-01-08] MEDS: LOVENOX 40 MG SC (17:54)
--- NOTE | 2024-01-08 18:08 | PTCARENOTE ---
Pt has not voided.Pt does not need to void at this time.Bladder scan for 258 ml.
--- NOTE | 2024-01-08 20:00 | PTCARENOTE ---
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 L neck incision with skin glue intact- pt denies pain, ice pack applied. RA Sat 96%. + voided nelly urine. POC discussed, call [place] with
pt.
[2024-01-08] MEDS: LIPITOR 40 MG PO (22:05)
[2024-01-08] MEDS: ZESTRIL PO (22:05)
[2024-01-09] VITALS (31 sets, daily range): BP systolic 86–125; BP diastolic 46–77; PULSE 56–66; BMI 27.4
--- NOTE | 2024-01-09 | PTCARENOTE ---
Neuro checks intact, no changes in pt assessment.
[2024-01-09 03:32] LABS: Hemoglobin 12.8 g/dL (13.0-18.0); Mean Corp Hgb Conc. 32.8 g/dL (33.0-37.0); Mean Corpuscular Hgb 31.4 pg (27.0-31.0); Mean Corpuscular Volume 95.8 fL (80.0-94.0); Mean Platelet Volume 10.4 fL (7.4-10.4); Platelet Count 203 10^3/uL (130-400); Red Blood Cell Count 4.07 10^6/uL (4.70-6.10); Red Cell Dist. Width 12.7 % (11.5-14.5); White Blood Cell Count 15.6 10^3/uL (4.8-10.8)
[2024-01-09 03:45] LABS: INR 1.14; PT 14.5 Sec (11.4-14.6)
[2024-01-09 03:46] LABS: APTT 32.4 Sec (23.4-35.0)
[2024-01-09 04:19] LABS: Blood Urea Nitrogen 28 mg/dl (9-20); Calcium 8.4 mg/dl (8.4-10.2); Carbon Dioxide 20 mmol/L (22-30); Chloride 111 mmol/L (98-107); Estimated Creatinine Clearance 61 ml/min; Glucose 132 mg/dl (70-99); Potassium 4.2 mmol/L (3.5-5.1); Sodium 138 mmol/L (135-145); eGFR > 60.00
--- NOTE | 2024-01-09 06:00 | PTCARENOTE ---
no changes in pt assessment.
--- NOTE | 2024-01-09 07:23 | W.PN.VS ---
Addendum entered and electronically signed by Malick Miller III, MD 01/09/24 10:18:
This patient was seen and examined with RICK Dockery. I agree with the history and physical exam as well as the assessment and plan.
Signed:
Malick Miller III, MD
[facility] V[facility] Surgery
[phone] (fdcf)
Original Note:
Today's Communication / Plan
-
See below.
Assessment/Plan
-
Assessment: 78-year-old male with symptomatic L ICA stenosis, POD #1 left carotid endarterectomy
Plan:
Wean Geovani-Synephrine to off as tolerated, remove A-line once Geovani-Synephrine is off
Discontinue IV fluids
OOB to chair with progression to ambulation as tolerated
Continue p.o. diet
Possible discharge later this afternoon pending toleration of ambulation, stabilization of blood pressure, and clearance from medical team
Subjective Data
-
Date of Service: January 09, 2024
Patient seen and examined at bedside, offers no complaints. Denies pain, nausea, vomiting, fever, and chills. Denies visual changes or headache. Reports equal and intact upper extremity and lower extremity strength. Tolerating p.o. diet.
Objective Data
-
Vital Signs
Temp Pulse Resp BP Pulse Ox
98.6 F 53 13 111/64 97
01/09/24 03:22 01/09/24 06:15 01/09/24 06:15 01/08/24 20:00 01/09/24 06:15
Intake and Output
01/08/24 01/09/24 01/10/24
06:59 06:59 06:59
Intake Total 600 / 600 2511 / 2511
Output Total 375 / 375
Balance 600 / 600 2136 / 2136
Intake:
Oral fluids 600 / 600 720 / 720
IV fluids (Total) 1791 / 1791
Nss 1,000 ml @ 80 mls/hr IV . 1440 / 1440
[id number] PHIL Rx#:[id number]
Phenylephrine 201 / 201
normal saline 150 / 150
Output:
Urine, Voided 375 / 375
Other:
Number of approximated MODERATE 3
amounts of urine
Lab Results
01/09/24 03:19
01/09/24 03:19
Calcium 8.4 mg/dl (8.4-10.2) 01/09/24 03:19
Total Bilirubin 0.4 mg/dl (0.2-1.3) 01/05/24 16:01
AST 25 U/L (17-59) 01/05/24 16:01
ALT 29 U/L (0-50) 01/05/24 16:01
Alkaline Phosphatase 89 U/L (38-126) 01/05/24 16:01
Total Protein 6.6 g/dl (6.3-8.2) 01/05/24 16:01
Albumin 4.2 g/dl (3.5-5.0) 01/05/24 16:01
Physical Exam
-
AAOx3, no apparent distress
Left neck surgical incision CDI, no evidence of hematoma, all surrounding skin soft, tongue midline, face symmetrical
No tachycardia
No dyspnea on room air
ABD flat, soft, nontender
Bilateral upper extremities and lower extremities 5/5 strength and equal
--- NOTE | 2024-01-09 08:00 | PTCARENOTE ---
Received pt awake and alert.Speech is appropriate.+5/5 [id number].Denies pain.SR noted.IVF and Phenylephrine gtt infusing.Left A Line intact.Lungs CTA.POX 100% on RA.Appetite excellent.Voiding via urinal.Left neck incision intact without edema or
drainage.Plan of care discussed.
[2024-01-09] MEDS: NEO-SYNEPHRINE 250 IV (08:42)
[2024-01-09] MEDS: ASPIR LOW (ENTERIC COATED) 81 MG PO (08:43)
[2024-01-09] MEDS: PLAVIX 75 MG PO (08:43)
[2024-01-09] MEDS: PROTONIX 40 MG PO (08:44)
--- NOTE | 2024-01-09 11:15 | W.PN.INTV ---
Documented by User: Nehemiah Kilpatrick MD, Resident 01/09/24 12:02
Today's Communication / Plan
Recommendations
Midodrine 10 mg p.o.
Wean off phenylephrine, maintaining MAP> 65
IVF�0.9% NS, 500 mL bolus
Assessment
-
78-year-old right-handed male who presented with acute painless vision loss in the left eye was diagnosed with left carotid artery stenosis and underwent carotid endarterectomy/angioplasty . He had an episode of hypotension in the PACU for which he
was started on pressors and transferred to the ICU for further management.
Imaging:
Head CT/brain MRI 01/05/2024: No acute intracranial abnormality.
CT angiogram neck 01/05/2024: Bilateral carotid bifurcation atherosclerosis with severe stenosis of the left carotid bulb (greater than 85% stenosis), and mild stenosis of the right carotid bulb (40% stenosis).
MRA brain/MRA [place] of [place] 01/05/2024: No hemodynamically significant stenosis, branch occlusion, or aneurysm.
Impression:
# TIA/amaurosis fugax
# Hypotension/shock secondary to anesthesia postoperatively
# Hypercholesterolemia
Conditions prior to admission:
Hypertension
Hypercholesterolemia
Renal calculi
Pancreatitis
PLAN:
# TIA/amaurosis fugax
Left carotid endarterectomy- POD #1
Continue postoperative care
DAPT with aspirin and Plavix for 21 days, then aspirin 81 mg
Continue statin
Frequent neurochecks and NIH score
# Hypotension/shock secondary to anesthesia postoperatively
Currently on phenylephrine 10 mg
IVF- 0.9% NS, 500ml bolus
Wean off pressors as tolerated maintaining MAP greater than 65
Add Midodrine 10 mg
# Hypercholesterolemia
Continue statins
#OOB to chair with progression to ambulation as tolerated
# Protonix 40 mg PO
# Diet as tolerated, cholesterol-lowering diet
# DVT prophylaxis
Lovenox 40 mg
Subjective Dataa
Subjective Data
Date of Service:
Date of Service: January 09, 2024
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
Subjective:
No acute overnight events
Patient is ambulating well, no respiratory distress. Saturating at SpO2 97% on room air. No fever, pain, discharge from the incision site.
Objective Data
Data Reviewed
Vital Signs / I&O / Oxygen:
Vital Signs
Temp Pulse Resp BP Pulse Ox
97.9 F 53 13 111/64 97
01/09/24 07:40 01/09/24 06:15 01/09/24 06:15 01/08/24 20:00 01/09/24 06:15
Intake and Output
01/08/24 01/09/24 01/10/24
06:59 06:59 06:59
Intake Total 600 / 600 2511 / 2511
Output Total 375 / 375
Balance 600 / 600 2136 / 2136
SaO2 97
Physical Exam
General: Comfortable
HEENT: Normocephalic and Anicteric
Cardiovascular: S1-S2
Respiratory: Clear
GI: Soft, Non Distended and Non Tender
Neurology: Awake, Alert, Oriented, AO x 3, No Motor Deficits and Other (Cranial nerves II to XII grossly intact, extraocular movements intact, deep tendon reflexes 2+ throughout, sensations intact throughout, strength 5 / 5 throughout, Babinski
absent bilaterally)
Skin: Warm and Dry
Labs/Micro/Reports
Lab Data
01/09/24 03:19
01/09/24 03:19
Laboratory Results
01/08/24 01/09/24
11:52 03:19
PT 14.5 14.5
INR 1.15 1.14
APTT 33.6 32.4

Documented by User: Fredi Herring MD 01/09/24 16:19
Today's Communication / Plan
Recommendations
-
Plan I saw and evaluated this patient with resident., I have reviewed plan and recommendations.
I personally examined the patient as well.
Continues to have hypotension, on low-dose Geovani-Synephrine.
Patient is relatively asymptomatic and nontoxic.
Continue to hold antihypertensive.
Primary team provided him with a dose of midodrine.
IV fluids will continue.
Encourage oral intake
Will keep overnight for blood pressure monitoring. Hopefully can wean off pressors overnight.
Care Review
-
Discussed with Clinician: Physician and Nurse
[2024-01-09] MEDS: ProAmatine 10 MG PO ×2 (11:29→13:09)
[2024-01-09] MEDS: NSS 500 IV (11:30)
--- NOTE | 2024-01-09 12:04 | PTCARENOTE ---
Pt assessed.OOB in chair x 3 hours.Gait is steady.Denies pain.Phenylephrine weaned to 10 mcg.
[2024-01-09 14:07] LABS: TSH 0.52 uIU/ml (0.47-4.68)
--- NOTE | 2024-01-09 14:29 | W.PN.UPDATE ---
Update Note
Progress Note Update
Patient with continued low blood pressure with SBP in the 90s, required PO midodrine. He is asymptomatic and offers no complaints. Would keep in patient additional night for BP monitoring, will hold lisinopril.
--- NOTE | 2024-01-09 15:26 | CM ---
CM following re: discharge planning.
Discussed in Rounds, reviewed pt's chart, met with pt. pt's spouse and pt's daughter at bedside.
PT and OT evaluations noted - pt has no skilled PT, OT needs. Independent with functional ability.
Pt stated he feels well and the only things is his low BP. Pt stated he will return back home with family support. IMM reviewed, placed in chart, pt has a copy.
D/C plan: home with no after care needs from CM standpoint. Spouse to transport at discharge.
CM will follow with discharge plan updates as needed.
--- NOTE | 2024-01-09 15:54 | PTOTSP ---
The patient is independent with ambulation and elevations, no strength or mobility deficits noted. No PT needs identified at this time, will sign off.
--- NOTE | 2024-01-09 16:23 | PTCARENOTE ---
Pt assessed.No change in assessment noted.
--- NOTE | 2024-01-09 16:35 | W.PN.HOSP.TC ---
Today's Communication/Plan
-
see note
Assessment / Plan
Assessment / Plan
# Amaurosis fugax of left eye likely 2/2 severe left carotid artery stenosis
-CT angio with Bilateral carotid bifurcation atherosclerosis with severe stenosis of the left carotid bulb (greater than 85% stenosis), and mild stenosis of the right carotid bulb (40% stenosis).
-Head CT normal
-MRI of the brain No acute intracranial abnormality noted.
-Aspirin and Plavix continued for 21 day then aspirin alone
-statin continued
-PT consulted
-A1C a t 5.7
-Appreciate cardiology evaluation for preop restart
-s/p left CEA and postop in ICU.
-Patient weaned off of vasopressors today. Blood pressure remains soft continue monitoring in hospital
-NS bolus and midodrine ordered
# History of idiopathic pancreatitis
# Renal calculi history with a history of lithotripsy.
Deep venous thrombosis prophylaxis-start lovenox
CODE STATUS -Full code
Transfer to telemetry
care plan discussed with operations vocational instructor/vascular surgeon
Anticipated Discharge: Within 24 hours
Subjective/Interval History
-
Date of Service: January 09, 2024
Resting comfortably in bed
Denies dizziness/chest discomfort
Objective Data
-
Vital Signs:
Vital Signs
Temp Pulse Resp BP Pulse Ox
98.3 F 55 18 99/55 100
01/09/24 11:10 01/09/24 12:45 01/09/24 12:45 01/09/24 12:40 01/09/24 08:00
I&O
01/08/24 01/09/24 01/10/24
06:59 06:59 06:59
Intake Total 600 / 600 2511 / 2603 1454 / 1454
Output Total 375 / 375 400 / 400
Balance 600 / 600 2136 / 2228 1054 / 1054
Review of Systems
-
Respiratory: Reports No Symptoms
Cardiac: Reports No Symptoms
Abdomen/GI: Reports No Symptoms
Physical Exam
-
General: Negative Appears in Distress
HEENT: Other (left lateral neck incision site - clean, no drainage); Negative Oxygen
GI: Soft, Nontender and Nondistended
Musculoskeletal: No Edema
Neuro: Awake, Alert and Oriented
[2024-01-09] MEDS: ProAmatine PO (18:38)
[2024-01-09] MEDS: LOVENOX 40 MG SC (18:38)
--- NOTE | 2024-01-09 20:00 | PTCARENOTE ---
route specialist, pt aaox3, Neuro checks intact, denies pain, SB HR 40s-50s, RW IV WNL, no gtts infusing, L neck incision with skin glue intact, RA Sat 96%, POC discussed, call [place] with patient.
[2024-01-09] MEDS: LIPITOR 40 MG PO (20:32)
[2024-01-10] VITALS (7 sets, daily range): BP systolic 89–116; BP diastolic 52–89; BMI 27.4
--- NOTE | 2024-01-10 05:00 | PTCARENOTE ---
neuro checks intact, no changes in pt assessment.
[2024-01-10] MEDS: PROTONIX 40 MG PO (07:49)
[2024-01-10] MEDS: ProAmatine PO (07:49)
[2024-01-10] MEDS: PLAVIX 75 MG PO (07:49)
[2024-01-10] MEDS: ASPIR LOW (ENTERIC COATED) 81 MG PO (07:49)
[2024-01-10] MEDS: ProAmatine 10 MG PO (08:11)
--- NOTE | 2024-01-10 10:05 | W.PN.VS ---
Today's Communication / Plan
-
Patient seen and examined at bedside, all questions and concerns addressed.
Assessment/Plan
-
Assessment: 78-year-old male with symptomatic L ICA stenosis, POD #2 left carotid endarterectomy
Plan:
Patient stayed overnight for continued monitoring of labile and asymptotic hypotension. Remains asymptomatic with improved blood pressure, home lisinopril on hold.
Ok for discharge from a vascaulr surgery perspective.
Subjective Data
-
Date of Service: January 10, 2024
Patient seen and examined at bedside, offers no complaints. Denies nausea, vomiting, fever, chills, dizziness, or lightheadedness.
Objective Data
-
Vital Signs
Temp Pulse Resp BP Pulse Ox
97.9 F 51 17 89/54 98
01/10/24 07:39 01/10/24 06:45 01/10/24 00:11 01/10/24 08:11 01/10/24 08:21
Intake and Output
01/09/24 01/10/24 01/11/24
06:59 06:59 06:59
Intake Total 2511 / 2603 1704 / 1704
Output Total 375 / 375 400 / 400
Balance 2136 / 2228 1304 / 1304
Intake:
Oral fluids 720 / 720 960 / 960
IV fluids (Total) 1791 / 1883 744 / 744
NSS bolus 625 / 625
Nss 1,000 ml @ 80 mls/hr IV . 1440 / 1520 80 / 80
[id number] PHIL Rx#:[id number]
Phenylephrine 201 / 213 39 / 39
normal saline 150 / 150
Output:
Urine, Voided 375 / 375 400 / 400
Other:
Number of approximated LARGE 1
amounts of urine
Lab Results
01/09/24 03:19
Calcium 8.4 mg/dl (8.4-10.2) 01/09/24 03:19
Total Bilirubin 0.4 mg/dl (0.2-1.3) 01/05/24 16:01
AST 25 U/L (17-59) 01/05/24 16:01
ALT 29 U/L (0-50) 01/05/24 16:01
Alkaline Phosphatase 89 U/L (38-126) 01/05/24 16:01
Total Protein 6.6 g/dl (6.3-8.2) 01/05/24 16:01
Albumin 4.2 g/dl (3.5-5.0) 01/05/24 16:01
Physical Exam
-
AAOx3, no apparent distress
Left neck surgical incision CDI, no evidence of hematoma, all surrounding skin soft, tongue midline, face symmetrical
No tachycardia
No dyspnea on room air
ABD flat, soft, nontender
Bilateral upper extremities and lower extremities 5/5 strength and equal
--- NOTE | 2024-01-10 10:17 | CM ---
CM following re: discharge planning.
Reviewed pt's chart, met with pt.
Discharge order noted. Pt is aware, expressed his agreement with discharge and pt stated his spouse is coming to transport him home. IMM reviewed yesterday.
PT and OT evaluations noted - pt has no skilled PT/OT needs, independent with functional ability
D/C plan: home no needs. Spouse to transport.
--- NOTE | 2024-01-10 11:02 | PTCARENOTE ---
pt given discharge instructions, verbalized understanding. iv removed, pressure dressing applied, site c/d/i. ambulating in room. vss.
--- NOTE | 2024-01-10 14:46 | W.PN.HOSP.TC ---
Today's Communication/Plan
-
d/c home
Assessment / Plan
Assessment / Plan
# Amaurosis fugax of left eye likely 2/2 severe left carotid artery stenosis
-CT angio with Bilateral carotid bifurcation atherosclerosis with severe stenosis of the left carotid bulb (greater than 85% stenosis), and mild stenosis of the right carotid bulb (40% stenosis).
-Head CT normal
-MRI of the brain No acute intracranial abnormality noted.
-Aspirin and Plavix continued for 21 day then aspirin alone
-statin continued
-PT consulted
-A1C a t 5.7
-Appreciate cardiology evaluation for preop restart
-s/p left CEA and postop in ICU.
-Patient weaned off of vasopressors. Blood pressure remains soft continue monitoring in hospital
-Patient blood pressure soft although asymptomatic. Discharging on as needed midodrine support.
# History of idiopathic pancreatitis
# Renal calculi history with a history of lithotripsy.
Deep venous thrombosis prophylaxis-start Lovenox
CODE STATUS -Full code
More than 30 minutes spent in discharge including
Final examination of the patient
Summarizing hospital stay
Instructions for continuing care to all relevant caregivers
Preparation of discharge records, prescriptions, and referral forms
Total time spent (in minutes): 40 mins
Anticipated Discharge: Today
Subjective/Interval History
-
Date of Service: January 10, 2024
No problems overnight
Blood pressure remains soft although asymptomatic
Objective Data
-
Labs:
Laboratory Results
01/10/24
09:45
Sodium Cancelled
Potassium Cancelled
Chloride Cancelled
Carbon Dioxide Cancelled
BUN Cancelled
Creatinine Cancelled
Glucose Cancelled
Calcium Cancelled
Vital Signs:
Vital Signs
Temp Pulse Resp BP Pulse Ox
97.9 F 57 17 101/59 98
01/10/24 07:39 01/10/24 10:00 01/10/24 00:11 01/10/24 10:00 01/10/24 10:30
I&O
01/09/24 01/10/24 01/11/24
06:59 06:59 06:59
Intake Total 2511 / 2603 1704 / 1704
Output Total 375 / 375 400 / 400
Balance 2136 / 2228 1304 / 1304
Review of Systems
-
Respiratory: Reports No Symptoms
Cardiac: Reports No Symptoms
Abdomen/GI: Reports No Symptoms
Physical Exam
-
General: Negative Appears in Distress
HEENT: Other (left lateral neck incision site - clean, no drainage); Negative Oxygen
GI: Soft, Nontender and Nondistended
Musculoskeletal: No Edema
Neuro: Awake, Alert and Oriented
--- NOTE | 2024-01-10 18:02 | W.DCSUMMARY ---
Discharge Summary
Discharge Data
Date of Admission: 01/07/24
Date of Discharge: 01/10/24
-
Pending Results: No
Hospital Course
Discharging Physician : Dr Sanchez Brooks
Disposition : To home
Primary care physician :Dr Liban Padilla
Principal Discharge diagnosis :
Amaurosis fugax from severe left carotid arterial stenosis
Chronic Discharge diagnosis :
History of idiopathic pancreatitis
history of nephrolithiasis
Hospital Course :
Patient is a 78-year-old male with above-mentioned past medical history came to ER for having transient episode of left eye vision loss lasting for 2 minutes. Patient felt a curtain coming down on left eye with resolution later. Patient also had
episode of blurry vision 2 weeks ago lasting few seconds. Patient was admitted to hospital for further evaluation. Patient had an MRI head and MRA head which was normal. CTA neck showing bilateral carotid stenosis with severe greater than 85%
left ICA stenosis. Patient was started on dual antiplatelet therapy and vascular surgery was consulted for evaluation of carotid endarterectomy. Patient underwent an uneventful carotid endarterectomy and post procedure required to be placed in ICU
for pressor support. Patient was able to be weaned off of vasopressor in next 48 hours. Patient blood pressure remains soft at discharge and was instructed to discontinue small dose of lisinopril. Patient was provided short prescription of
midodrine to use if patient have any symptomatic dizziness. Patient to follow-up with primary care physician and vascular surgeon postdischarge.
Important imaging findings :
CTA neck
Bilateral carotid bifurcation atherosclerosis with severe stenosis of the left carotid bulb (greater than 85% stenosis), and mild stenosis of the right carotid bulb (40% stenosis).
Procedure findings :
None
Discharge Plan
-
Patient Disposition: Home (Routine Discharge)
Discharge Diagnosis/Procedures: Left CEA, Amaurosis fugax
Condition: Fair
Diet: Low Cholesterol and Low Sodium
Activity: No strenuous activity
Driving Restrictions: Not until seen by your Dr
Bathing Restrictions: OK to Shower
Activity Restrictions/Additional Instructions:
If you experience severe constant headache, weakness to an arm or leg, change in vision, trouble speaking or any stroke-like symptom, call 911 immediately
If you experience swelling, increased bruising, drainage from neck site, or fever, please call the office
Stand Alone Forms: DC Instr - Vascular OR
Referrals:
Liban Padilla DO [Family Provider] - in one week
Dolores Menjivar CRNP [Specified Professional Personl] - 01/23/24 8:15 am
Prescriptions:
New
atorvastatin 40 mg Tablet
40 mg PO HS Qty: 30 2RF
midodrine 5 mg Tablet
10 mg PO TID@0800,1300,1800 PRN (Reason: Dizziness or Systolic BP < 100) Qty: 15 0RF
clopidogrel 75 mg Tablet
75 mg PO DAILY Qty: 30 2RF
Continued
tetrahydrozoline [Visine] 0.05 % Drops
1 drp LEFT EYE HSPRN PRN (Reason: dry eyes)
aspirin 81 mg Tablet,Delayed Release (Dr/Ec)
81 mg PO DAILY
Patient Comments:
01/05/2024, per pt., sometimes they skip taking this med. but normally it is taken daily.
pantoprazole 40 mg Tablet,Delayed Release (Dr/Ec)
40 mg PO DAILY
Discontinued
atorvastatin 20 mg Tablet
20 mg PO HS
lisinopril 10 mg Tablet
10 mg PO HS
Discharge Orders:
Discharge Patient (As Directed); Ordered 01/10/24
Ordered By: Sanchez Brooks
Discharge Date and Time
Discharge Date/Time: 01/10/24 11:57
Print Language: YAKUT
== END 2024-01-10 11:57 | disposition home or self-care (01) | DRG 38 ==
LOC: ICU 12:04
PROVIDERS: Hospitalist; Physician Assistant; Registered Nurse; Surgery Vascular Surgery; ADMITTING PHYSICIAN Internal Medicine; ATTENDING PHYSICIAN Hospitalist; CONSULT PHYSICIAN Internal Medicine Cardiovascular Disease; CONSULT PHYSICIAN Student in an Organized Health Care Education/Training Program; EMERGENCY PHYSICIAN Emergency Medicine; FAMILY PHYSICIAN Family Medicine; OTHER PHYSICIAN Internal Medicine; OTHER PHYSICIAN Nurse Practitioner
PROC: 03UL0KZ Supplement Left Internal Carotid Artery with Nonautologous Tissue Substitute, Open Approach (ICD-10-PCS; 2024-01-08)
PROC: 03CL0ZZ Extirpation of Matter from Left Internal Carotid Artery, Open Approach (ICD-10-PCS; 2024-01-08)
DX: I65.22 Occlusion and stenosis of left carotid artery (principal); G45.3 Amaurosis fugax; T81.10XA Postprocedural shock unspecified, initial encounter; I10 Essential (primary) hypertension; E78.2 Mixed hyperlipidemia; I95.9 Hypotension, unspecified; Z87.891 Personal history of nicotine dependence; Y83.8 Other surgical procedures as the cause of abnormal reaction of the patient, or of later complication, without mention of misadventure at the time of the procedure
CPT/HCPCS: 88304; 88311; 35301; 70450; 70498; 70544; 70551; 80048; 80053; 80061; 83036; 84443; 84484; 85025; 85027; 85610; 85652; 85730; 86140; 86850; 86900; 86901; 93005; 97116; 97162; 99285; Q9967

== ENCOUNTER → 2024-02-19 08:58 | Outpatient (REF) | payer MEDICARE, OTHER, SELFPAY | LOC: RAD 08:58 | PROVIDERS: ATTENDING PHYSICIAN Registered Nurse; FAMILY PHYSICIAN Family Medicine | DX: I65.23 Occlusion and stenosis of bilateral carotid arteries (principal) | CPT/HCPCS: 93880 ==

== ENCOUNTER → 2024-08-15 14:54 | Outpatient (REF) | payer MEDICARE, OTHER, SELFPAY | LOC: RAD 14:54 | PROVIDERS: ATTENDING PHYSICIAN Surgery Vascular Surgery; FAMILY PHYSICIAN Family Medicine | DX: I65.23 Occlusion and stenosis of bilateral carotid arteries (principal) | CPT/HCPCS: 93880 ==

== ENCOUNTER → 2025-02-18 10:26 | Outpatient (REF) | payer MEDICARE, OTHER, SELFPAY | LOC: RAD 10:26 | PROVIDERS: ATTENDING PHYSICIAN Surgery Vascular Surgery; FAMILY PHYSICIAN Family Medicine | DX: I65.23 Occlusion and stenosis of bilateral carotid arteries (principal) | CPT/HCPCS: 93880 ==

== ENCOUNTER → 2025-08-05 09:46 | Outpatient (REF) | payer MEDICARE, OTHER, SELFPAY | LOC: RAD 09:46 | PROVIDERS: ATTENDING PHYSICIAN Registered Nurse; FAMILY PHYSICIAN Family Medicine | DX: I65.23 Occlusion and stenosis of bilateral carotid arteries (principal) | CPT/HCPCS: 93880 ==